=== PATIENT | female | born 1925 | race Caucasian/White ===

== ENCOUNTER 2016-06-07 18:44 | Emergency (ER) | payer OTHER, MEDICARE ==
[~2016-06-07 18:44] MED LIST: ALPRAZOLAM0.5 M3 PO; AMLODIPINE BES2.5 M1 PO; ANTIVERT25 MG PO; ASPIR 8181 MG PO; ENSURE 237 ML237 ML PO; LOSARTAN POTAS100 MG PO; MASON NATURAL2000 IU PO; MULTIVITAMIN1 TAB PO; NORVASC 5MG TAB5 MG PO; OMEPRAZOLE20 M2 PO; OMEPRAZOLE40 MG PO
--- NOTE | 2016-06-07 20:28 | RADIOLOGY REPORT ---
EXAMINATION: XR CHEST CLINICAL INFORMATION: Cough, fever, wheezing. COMPARISON: Chest x-ray 10/20/2015 TECHNIQUE: 2 views of the chest were obtained. FINDINGS: Lungs are clear. No pulmonary vascular congestion. No infiltrate or pleural effusion. The heart size is normal. The cardiac and mediastinal contours are normal. There are calcifications of the thoracic aorta. There are multilevel degenerative changes of dorsal spine. IMPRESSION: Unremarkable examination.
[2016-06-07 20:44] LABS: ABSOLUTE BASOPHIL COUNT 0 /CUMM (0.0-0.2); ABSOLUTE EOSINOPHIL COUNT 0.1 /CUMM (0.0-0.7); ABSOLUTE GRANULOCYTE CT 7.6 /CUMM (1.4-6.5); ABSOLUTE LYMPH COUNT 1.1 /CUMM (1.2-3.4); ABSOLUTE MONOCYTE COUNT 0.6 /CUMM (0.10-0.60); BASOPHIL % 0.1 % (0.0-2.0); EOSINOPHIL % 0.6 % (0-5); GRANULOCYTE % 81.4 % (42.2-75.2); HEMATOCRIT 38.4 % (37-47); MEAN CORPUSCULAR HGB 30.6 PG (27.0-31.0); MEAN CORPUSCULAR HGB CONC 32.7 G/DL (33.0-37.0); MEAN CORPUSCULAR VOLUME 93.8 FL (81.0-99.0); PLATELET COUNT 213 /CUMM (130-400); RBC DISTRIBUTION WIDTH 14.2 % (11.5-14.5); RED BLOOD CELL CT 4.09 /CUMM (4.20-5.40); WHITE BLOOD CELL COUNT 9.3 /CUMM (4.8-10.8)
[2016-06-07] MEDS ORDERED: ALPRAZOLAM0.5 M4 PO (21:14)
[2016-06-07] MEDS ORDERED: METRONIDAZOLE59 ML TOP (21:15)
[2016-06-07] MEDS ORDERED: ASPIRIN EC81 M1 PO (21:17)
[2016-06-07] MEDS ORDERED: LOSARTAN POTAS100 M1 PO (21:17)
[2016-06-07] MEDS ORDERED: ENSURE ENLIVE237 ML PO (21:19)
[2016-06-07] MEDS ORDERED: ENSURE ORIGINA237 ML PO (21:20)
[2016-06-07 22:08] VITALS: BP 170/74
[2016-06-07] MEDS ORDERED: MACROBID 100 M100 MG PO (22:28)
--- NOTE | 2016-06-07 22:29 | ED GENERAL ADULT ---
History of Present Illness General Chief Complaint: General Adult Stated Complaint: FEVER, HIGH BP Source: patient, family, old records Exam Limitations: no limitations Vital Signs & Intake/Output Vital Signs & Intake/Output Vital Signs Date Time Temp Pulse Resp B/P Pulse O2 O2 Flow FiO2 Ox Delivery Rate 06/08 2207 99.8 116 20 170/74 97 Room Air 06/07 1922 99.6 116 18 187/79 98 Room Air Allergies Coded Allergies: oxycodone (From PERCOCET) (Intermediate, FELT KIND OF CRAZY 09/21/15) sulfamethoxazole (From BACTRIM) (Intermediate, ACHILLES HEEL 09/21/15) trimethoprim (From BACTRIM) (Intermediate, ACHILLES HEEL 09/21/15) Beta-Blockers (Beta-Adrenergic Bloc ( TOLD PT DO NOT TAKE 09/21/15) lisinopril (COUGHING 09/21/15) valsartan (From DIOVAN) (SWELLING TO FEET 09/21/15) atenolol (Intermediate, ORTHOSTATIC HYPOTENSION 09/21/15) Reconcile Medications Alprazolam 0.5 MG TABLET 1 TAB PO BID ANXIETY (Reported) Amlodipine Besylate 2.5 MG TABLET 1-2 TAB PO DAILY BP (Reported) Aspirin (Ecotrin*) 81 MG TABLET.DR 1 TAB PO DAILY HEART/BLOOD (Reported) Lactose-Reduced Food (Ensure Enlive) 0.08 GRAM-1.5 KCAL/ML LIQUID 1 CAN PO PRN SUPPLEMENT (Reported) Lactose-Reduced Food (Ensure Original) 237 ML LIQUID 1 CAN PO PRN SUPPLEMENT (Reported) Losartan Potassium 100 MG TABLET 1 TAB PO QPM BP (Reported) Metronidazole 0.75 % LOTION 1 JI TOP QAM ROSACEA (Reported) Nitrofurantoin Monohyd/M-Cryst (Macrobid 100 MG Capsule) 100 MG CAPSULE 1 CAP PO BID uti with food Omeprazole 20 MG CAPSULE.DR 1 CAP PO PRN GI (Reported) Triage Note: TRIAGE; PT TO ED WITH HIGH BP AND FEVER. STATES BP WAS 190'S SYSTOLIC AND HAD A SMALL TEMPERATURE. ADVISED TO COME TO ER BY STAFF - PT LIVES IN [facility]. STATES SHE STOPPED TAKING HER AMLODIPINE SINCE HER BP HAS BEEN BETTER. WAS DX WITH BRONCHITIS THE OTHER DAY. DENIES ANY CP/SOB AT THIS TIME Triage Nurses Notes Reviewed? yes Onset: Last week Duration: day(s):, constant, continues in ED Timing: recent history Injury Environment: home Severity: moderate No Modifying Factors: none Associated Symptoms: cough LMP (ages 10-50): post menopausal : No Patient currently breastfeeds: No HPI: One week prior to admission patient was diagnosed with bronchitis prescribed prednisone and Tessalon. She's noted that her blood pressure has become elevated with low-grade temperature and dysuria. The cough is improved. She denies chills nausea vomiting diarrhea abdominal pain chest pain headache rash shortness of breath bleeding. Past History Travel History Traveled to [place] past 21 day No Medical History Any Pertinent Medical History? 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 No Review of Systems Review of Systems Constitutional: Reports: see HPI, fever. EENTM: Reports: no symptoms. Respiratory: Reports: see HPI, cough. Cardiovascular: Reports: no symptoms. GI: Reports: no symptoms. Genitourinary: Reports: see HPI, dysuria. Musculoskeletal: Reports: no symptoms. Skin: Reports: no symptoms. Neurological/Psychological: Reports: no symptoms. Hematologic/Endocrine: Reports: no symptoms. Immunologic/Allergic: Reports: no symptoms. All Other Systems: Reviewed and Negative Physical Exam Physical Exam General Appearance: well developed/nourished, alert, awake, anxious, mild distress Head: atraumatic, normal appearance Eyes: Bilateral: normal appearance, PERRL, EOMI. Ears, Nose, Throat: normal pharynx, normal ENT inspection Neck: normal inspection, supple, full range of motion, no midline tenderness Respiratory: chest non-tender, no respiratory distress, wheezing Cardiovascular: regular rate/rhythm, normal peripheral pulses, norml femoral pulses equa Peripheral Pulses: 4+ carotid (R), 4+ carotid (L) Gastrointestinal: normal bowel sounds, soft, non-tender, no organomegaly Back: normal inspection, normal range of motion Extremities: normal inspection, normal capillary refill, normal range of motion, no edema Neurologic/Psych: no motor/sensory deficits, awake, alert, oriented x 3, normal gait, normal mood/affect Reflexes: 2+: bicep (R), bicep (L). Skin: intact, normal color, warm/dry Lymphatic: no anterior cervical bonita Core Measures ACS in differential dx? No CVA/TIA Diagnosis: No Severe Sepsis Present: No Septic Shock Present: No Progress Differential Diagnoses I considered the following diagnoses in my evaluation of the patient: Influenza hypertension UTI bronchitis Plan of Care: Orders Procedure Date/time Status RAPID VIRAL INFLUENZA A 06/07 2000 Complete URINALYSIS 06/07 2000 Complete TROPONIN LEVEL 06/07 2000 Complete COMPREHENSIVE METABOLIC PANEL 06/07 2000 Complete CBC WITHOUT DIFFERENTIAL 06/07 2000 Complete EKG 06/07 2000 Active Laboratory Tests 06/07/16 2200: Urine Color YEL, Urine Clarity CLEAR, Urine pH 6.5, Ur Specific [place] 1.020, Urine Protein 30 H, Urine Ketones 15 H, Urine Nitrite NEG, Urine Bilirubin NEG , Urine Urobilinogen 0.2, Ur Leukocyte Esterase TRACE H, Ur Microscopic SEDIMENT EXAMINED, Urine RBC 1-3, Urine WBC 5-10 H, Ur Epithelial Cells MOD H, Urine Bacteria FEW H, Urine Hemoglobin NEG, Urine Glucose NEG 06/07/162036: Anion Gap 8, Estimated GFR > 60, BUN/Creatinine Ratio 18.3, Glucose 122 H, Calcium 9.5, Total Bilirubin 0.5, AST 24, ALT 28, Alkaline Phosphatase 82, Troponin I < 0.01, Total Protein 6.6, Albumin 3.7, Globulin 2.9, Albumin/ Globulin Ratio 1.3, CBC w Diff NO MAN DIFF REQ, RBC 4.09 L, MCV 93.8, MCH 30.6, RDW 14.2, MPV 9.0, Gran % 81.4 H, Lymphocytes % 11.6 L, Monocytes % 6.3, Eosinophils % 0.6, Basophils % 0.1, Absolute Granulocytes 7.6 H, Absolute Lymphocytes 1.1 L, Absolute Monocytes 0.6, Absolute Eosinophils 0.1, Absolute Basophils 0, PUBS MCHC 32.7 L Microbiology 06/07 2099 NASOPHARYN: Influenza Virus A & B Rapid Smear - COMP Diagnostic Imaging: Viewed by Me: Radiology Read. Discussed w/RAD: Radiology Read. CXR Impression: no acute abnormality, no infiltrates Initial ED EKG: normal axis, normal intervals, normal p-waves, normal QRS complex, normal sinus rhythm, no ST T wave changes Departure Departure Time of Disposition: 2225 Disposition: HOME OR SELF CARE Condition: Stable Clinical Impression Primary Impression: Hypertension Qualifiers: Hypertension type: essential hypertension Qualified Code: I10 - Essential (primary) hypertension Secondary Impressions: UTI (urinary tract infection) Qualifiers: Urinary tract infection type: site unspecified Hematuria presence: without hematuria Qualified Code: N39.0 - Urinary tract infection, site not specified Referrals: JOSE EMANUEL MD (PCP/Family) Additional Instructions: Resume your amlodipine. Departure Forms: Customer Survey General Discharge Information Prescriptions: Current Visit Scripts Nitrofurantoin Monohyd/M-Cryst (Macrobid 100 MG Capsule) 1 CAP PO BID #14 CAP with food Critical Care Note Critical Care Note Critical Care Time: non-applicable
== END 2016-06-07 22:52 ==
LOC: ERH 18:44
PROVIDERS: Emergency Medicine
DX: N39.0 Urinary tract infection, site not specified (principal); I10 Essential (primary) hypertension
CPT/HCPCS: 1263; 81001; 87804; 87804-59; 93005; 93010

== ENCOUNTER 2016-06-14 15:25 | Inpatient (IN) | payer OTHER, MEDICARE ==
[~2016-06-14] VITALS: Ht 154.9 cm; Wt 49.9 kg
[~2016-06-14 15:25] MED LIST changes: +ALPRAZOLAM0.5 M4 PO; +ASPIRIN EC81 M1 PO; +ENSURE ENLIVE237 ML PO; +ENSURE ORIGINA237 ML PO; +LOSARTAN POTAS100 M1 PO; +MACROBID 100 M100 MG PO; +METRONIDAZOLE59 ML TOP
[2016-06-14 16:33] LABS: ABSOLUTE BASOPHIL COUNT 0 /CUMM (0.0-0.2); ABSOLUTE EOSINOPHIL COUNT 0.1 /CUMM (0.0-0.7); ABSOLUTE GRANULOCYTE CT 17.6 /CUMM (1.4-6.5); ABSOLUTE LYMPH COUNT 0.5 /CUMM (1.2-3.4); ABSOLUTE MONOCYTE COUNT 0.5 /CUMM (0.10-0.60); BASOPHIL % 0.1 % (0.0-2.0); EOSINOPHIL % 0.4 % (0-5); MEAN CORPUSCULAR HGB 30.4 PG (27.0-31.0); MEAN CORPUSCULAR HGB CONC 32.8 G/DL (33.0-37.0); MEAN CORPUSCULAR VOLUME 92.8 FL (81.0-99.0); PLATELET COUNT 241 /CUMM (130-400); RBC DISTRIBUTION WIDTH 13.9 % (11.5-14.5)
[2016-06-14 16:35] LABS: WHITE BLOOD CELL COUNT 18.6 /CUMM (4.8-10.8)
[2016-06-14 16:42] LABS: GRANULOCYTE % 94.5 % (42.2-75.2)
--- NOTE | 2016-06-14 17:28 | ED INFLUENZA/URI COMPLAINT ---
History of Present Illness General Chief Complaint: General Adult Stated Complaint: FEVER; CHILLS Source: patient, family (son) Exam Limitations: no limitations Allergies Coded Allergies: oxycodone (From PERCOCET) (Intermediate, FELT KIND OF CRAZY 09/21/15) sulfamethoxazole (From BACTRIM) (Intermediate, ACHILLES HEEL 09/21/15) trimethoprim (From BACTRIM) (Intermediate, ACHILLES HEEL 09/21/15) Beta-Blockers (Beta-Adrenergic Bloc (MD TOLD PT DO NOT TAKE 09/21/15) lisinopril (COUGHING 09/21/15) valsartan (From DIOVAN) (SWELLING TO FEET 09/21/15) atenolol (Intermediate, ORTHOSTATIC HYPOTENSION 09/21/15) Reconcile Medications Alprazolam 0.5 MG TABLET 1 TAB PO BID ANXIETY (Reported) Amlodipine Besylate 2.5 MG TABLET 1-2 TAB PO DAILY BP (Reported) Aspirin (Ecotrin*) 81 MG TABLET.DR 1 TAB PO DAILY HEART/BLOOD (Reported) Lactose-Reduced Food (Ensure Enlive) 0.08 GRAM-1.5 KCAL/ML LIQUID 1 CAN PO PRN SUPPLEMENT (Reported) Lactose-Reduced Food (Ensure Original) 237 ML LIQUID 1 CAN PO PRN SUPPLEMENT (Reported) Losartan Potassium 100 MG TABLET 1 TAB PO QPM BP (Reported) Metronidazole 0.75 % LOTION 1 JI TOP QAM ROSACEA (Reported) Nitrofurantoin Monohyd/M-Cryst (Macrobid 100 MG Capsule) 100 MG CAPSULE 1 CAP PO BID uti with food Omeprazole 20 MG CAPSULE.DR 1 CAP PO PRN GI (Reported) Tobramycin 0.3 % DROPS 1 GTT OPH 4 TIMES/DAY BOTH EYES (Reported) Triage Note: PER PT CHILLS AND FEVERS NURSE CAME TO [facility] THIS AM PER PT TEMP 103. PT WITH RECENT HX OF COLD, BRONCHITIS AND PINK EYE. RECENT {>1 MONTH AGO HX OF NORO VIRUS. PT REPORTS DECREASED APPETITE WELL. Triage Nurses Notes Reviewed? yes HPI: This patient is an 89 year old female with a past medical history including hypertension, orthostatic hypotension, bronchitis, and anxiety who was brought in from [facility] for evaluation of fever. The patient reported that over a month ago she was diagnosed with Norovirus. Two weeks ago she had bronchitis and was also diagnosed with a UTI, currently on Macrobid. She reported that she did not take her dose today because she was worried it gave her a fever. She was diagnosed with conjunctivitis last week, currently on antibiotic eye drops. She reported that she felt fine yesterday until last night when she felt chilled. She had a fever to 103 and a mild right lower abdominal pain. She reported that the pain was, "just nagging, only enough to keep me up at night." She denied any pain currently. No nausea or vomiting. She denied any headaches, chest pain, difficulty breathing, or any urinary symptoms. (MICHAEL BOUCHER PA-C) Vital Signs & Intake/Output Vital Signs & Intake/Output Vital Signs Date Time Temp Pulse Resp B/P Pulse O2 O2 Flow FiO2 Ox Delivery Rate 06/14 2255 96.5 82 20 113/63 94 Room Air 06/14 2101 97.2 83 20 109/64 93 Room Air 06/14 1845 97.0 84 20 135/60 98 Room Air 06/14 1758 97.0 89 20 138/64 100 Room Air 06/14 1534 98.3 102 22 110/65 95 Room Air Past History Travel History Traveled to [place] past 21 day No Medical History Any Pertinent Medical History? 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 No (MICHAEL BOUCHER PA-C) Review of Systems Review of Systems Constitutional: Reports: see HPI. EENTM: Reports: see HPI. Respiratory: Reports: no symptoms. Cardiovascular: Reports: no symptoms. GI: Reports: see HPI. Genitourinary: Reports: see HPI. Musculoskeletal: Reports: no symptoms. Skin: Reports: no symptoms. Neurological/Psychological: Reports: no symptoms. All Other Systems: Reviewed and Negative (MICHAEL BOUCHER PA-C) Physical Exam Physical Exam Ears, Nose, Throat: normal ENT inspection, moist mucous membrane, hearing grossly normal, no nasal congestion Comments: Well-developed well-nourished person in no acute distress HEENT: Normal EENT exam, head normocephalic PERRLA bilaterally. No conjunctival injection. No drainage from the eyes bilaterally Neck: Supple, no lymphadenopathy Back: Normal inspection Cardiovascular: Regular rate and rhythm with no murmurs, rubs, or gallops Respiratory: Chest nontender. No respiratory distress. Scattered rhonchi heard in the lung bases with no wheezes or rales Abdomen: Soft, nontender and nondistended. No rebound or guarding. No organomegaly. Normoactive bowel sounds. No peritoneal signs. No McBurney's point tenderness. Extremity: Normal and equal pulses. Neuro: Alert oriented x3, cranial nerves II through XII grossly intact. Skin: No appreciable rash on exposed skin, skin is warm and dry. Psych: Mood and affect is normal Core Measures Severe Sepsis Present: No Septic Shock Present: No (CITLALY LOTT,MICHAEL) Progress Differential Diagnosis: influenza, meningitis, otitis, pneumonia, pharyngitis, sinusitis, gastroenteritis, appendicitis, mesenteric ischemia, colitis Diagnostic Imaging: Viewed by Me: Radiology Read, CT Scan. Discussed w/RAD: Radiology Read, CT Scan. Radiology Impression: PATIENT: DIANE SANCHEZ PRESENT AGE: 89 PATIENT ACCOUNT NO: [id number] : [birth year] LOCATION: [facility] ORDERING PHYSICIAN: MICHAEL BOUCHER PA-C SERVICE DATE: 06/14/16 EXAM TYPE: CAT - CT ABD & PELVIS W IV CONTRAST EXAMINATION: CT ABDOMEN AND PELVIS WITH CONTRAST CLINICAL INFORMATION: Abdominal pain. Fever. COMPARISON: CT abdomen pelvis 08/07 TECHNIQUE: Multidetector volumetric imaging was performed of the abdomen and pelvis before and after the IV administration of 95 mL of Optiray 320 intravenous contrast. Sagittal and coronal reformatted images were obtained on the technologist's workstation. DLP: 236.84 mGy-cm FINDINGS: LUNG BASES: Coarse interstitial lung markings at lung bases. No infiltrate or pleural effusion. LIVER, GALLBLADDER, AND BILIARY TREE: The liver is normal in size, shape, and attenuation. No focal hepatic lesion or biliary ductal dilatation is present. Status post cholecystectomy PANCREAS: Unremarkable. SPLEEN: Unremarkable. ADRENAL GLANDS: Unremarkable. KIDNEYS AND URETERS: There are bilateral renal cysts. Largest involves the midpole the right kidney measuring 7.5 cm. No renal or ureteral calculi. There is no hydronephrosis. BLADDER: Unremarkable. GASTROINTESTINAL TRACT: There is diverticulosis of the colon with numerous diverticula of the sigmoid and scattered diverticula throughout the colon. No diverticulitis. No acute change of the bowel. No bowel obstruction. No bowel wall thickening or edema. The appendix is normal. The small bowel loops are normal. ABDOMINAL WALL: No significant hernia is appreciated. LYMPH NODES: Normal. VASCULAR: Atherosclerotic vascular wall calcifications of aorta and iliac vessels. Vascular calcification of the splenic artery and the origin of the SMA and celiac axis. No aneurysm. Normal variant of a retroaortic left renal vein. PELVIC VISCERA: Uterus is anteverted. No adnexal abnormality. OSSEOUS STRUCTURES: There is mild multilevel degenerative change of the spine with disc height narrowing and endplate spurs and mild facet joint arthrosis. Vacuum disc phenomena L3-L4. IMPRESSION: No acute abnormality CT scan abdomen and pelvis. There is diverticulosis of the colon but no acute changes of the bowel. DICTATED BY: MONICA OROZCO MD DATE/TIME DICTATED:06/14/161955 GAMBRELER HELPER:ARTEM DATE/TIME TRANSCRIBED:06/14/161955 CONFIDENTIAL, DO NOT COPY WITHOUT APPROPRIATE AUTHORIZATION. <Electronically signed in Other Vendor System> SIGNED BY: MONICA OROZCO MD 06/14/162005 CXR Impression: PATIENT: DIANE SANCHEZ PRESENT AGE: 89 PATIENT ACCOUNT NO: [id number] : [birth year] LOCATION: [facility] ORDERING PHYSICIAN: MICHAEL BOUCHER PA-C SERVICE DATE: 06/14/16 EXAM TYPE: RAD - XRY- PORTABLE CHEST XRAY EXAMINATION: XR PORTABLE CHEST CLINICAL INFORMATION: Fevers and chills. COMPARISON: 06/07/2016. TECHNIQUE: Portable AP view of the chest was obtained. FINDINGS: The cardiomediastinal silhouette is normal for technique. The lungs remain clear. No consolidation. There is equivocal mild blunting of the left costophrenic angle. No pneumothoraces. No acute osseous abnormalities are evident. IMPRESSION: Equivocal mild blunting of the left costophrenic angle raising the possibility of a small left pleural effusion. No consolidation or evidence of pulmonary edema. DICTATED BY: XAVI HATCH MD DATE/TIME DICTATED:1732 GAMBRELER HELPER:ARTEM DATE/TIME TRANSCRIBED:03/16/17 / 1733 CONFIDENTIAL, DO NOT COPY WITHOUT APPROPRIATE AUTHORIZATION. <Electronically signed in Other Vendor System> SIGNED BY: XAVI HATCH MD 06/14/16 1738 Initial ED EKG: normal axis, normal intervals, normal sinus rhythm, no ST T wave changes, 88 BPM Comments: 06/14/2016 6:33:11 PM: I was at the patient's bedside for re-evaluation. Resting comfortably in no acute distress. WBC count 18. Will obtain a CT of the abdomen and pelvis (CITLALY LOTT,MICHAEL) Plan of Care: Orders Procedure Date/time Status Regular Diet 06/15 B Active CBC WITHOUT DIFFERENTIAL 06/15 06 Active BASIC ELECTROLYTES PLUS BUN&CR 06/15 06 Active Saline Lock 06/14 2304 Active Pathway - chart 06/14 2304 Active House Staff 06/14 2304 Active Patient Data 06/14 2140 Active OXYGEN SETUP (GEN) 06/14 2134 Active Saline Lock 06/14 2134 Active Admit to inpatient 06/14 2134 Active Vital Signs 06/14 2134 Active Activity/Ambulation 06/14 2134 Active Code Status 06/14 2134 Active LACTIC ACID 06/14 2009 Complete Intake & Output 06/14 1845 Active RAPID VIRAL INFLUENZA A 06/14 1710 Complete CULTURE,URINE 06/14 1710 Active BLOOD CULTURE 06/14 1710 Active LACTIC ACID 06/14 1710 Complete EKG 06/14 1710 Active URINALYSIS 06/14 1614 Complete TROPONIN LEVEL 06/14 1614 Complete LIPASE 06/14 1614 Complete COMPREHENSIVE METABOLIC PANEL 06/14 1614 Complete CBC WITHOUT DIFFERENTIAL 06/14 1614 Complete AMYLASE 06/14 1614 Complete Current Medications Sig/Bobby Start time Last Medication Dose Stop Time Status Admin Losartan Potassium 100 MG QPM 06/15 2200 UNVr (Cozaar) Alprazolam 0.5 MG BID 06/15 1000 UNVr (Xanax) 06/22 0959 Amlodipine Besylate See Dose DAILY 06/15 1000 UNVr (Norvasc) Insts (1) Aspirin Buffered 81 MG DAILY 06/15 1000 UNVr (Ecotrin) Enoxaparin Sodium 40 MG DAILY 06/15 1000 UNVr (Lovenox) Acetaminophen 650 MG Q6P PRN 06/14 2315 UNVr (Tylenol) Tobramycin 1 GTT 4 TIMES/DAY 06/14 2301 UNVr (Tobrex) Dose Instructions: (1)Amlodipine Besylate (Norvasc): 1-2 TAB Laboratory Tests 06/14/168: Lactic Acid 1.0 06/14/162028: Urine Color YEL, Urine Clarity HAZY H, Urine pH 6.5, Ur Specific [place] <= 1.005, Urine Protein TRACE H, Urine Ketones 15 H, Urine Nitrite NEG, Urine Bilirubin NEG, Urine Urobilinogen 0.2, Ur Leukocyte Esterase SMALL H, Ur Microscopic SEDIMENT EXAMINED, Urine RBC 3-5, Urine WBC 10-15 H, Ur Epithelial Cells MANY H, Hyaline Casts RARE H, Granular Casts RARE H, Micro UA Comment CELLULAR CASTS H, Urine Hemoglobin TRACE-INTACT, Urine Glucose NEG 06/14/16 1740: Lactic Acid 1.5 06/14/16 1625: Anion Gap 13, Estimated GFR > 60, BUN/Creatinine Ratio 22.5, Glucose 138 H, Calcium 9.6, Total Bilirubin 1.3, AST 22, ALT 26, Alkaline Phosphatase 72, Troponin I < 0.01, Total Protein 7.0, Albumin 3.9, Globulin 3.1, Albumin/ Globulin Ratio 1.3, Amylase 62, Lipase 46, CBC w Diff NO MAN DIFF REQ, RBC 4.20, MCV 92.8, MCH 30.4, RDW 13.9, MPV 9.0, Gran % 94.5 H, Lymphocytes % 2.5 L, Monocytes % 2.5, Eosinophils % 0.4, Basophils % 0.1, Absolute Granulocytes 17.6 H, Absolute Lymphocytes 0.5 L, Absolute Monocytes 0.5, Absolute Eosinophils 0.1 , Absolute Basophils 0, PUBS MCHC 32.8 L Microbiology 06/14 2028 URINE ROUT: Urine Culture - RECD 06/14 1843 NASOPHARYN: Influenza Virus A & B Rapid Smear - COMP 06/14 175 BLOOD: Blood Culture - RECD 06/15 1739 BLOOD: Blood Culture - RECD Departure Departure Disposition: STILL A PATIENT Condition: Stable Clinical Impression Primary Impression: UTI (urinary tract infection) Qualifiers: Urinary tract infection type: site unspecified Hematuria presence: without hematuria Qualified Code: N39.0 - Urinary tract infection, site not specified Secondary Impressions: Altered mental status Qualifiers: Altered mental status type: unspecified Qualified Code: R41.82 - Altered mental status, unspecified Referrals: JOSE EMANUEL MD (PCP/Family) Departure Forms: Customer Survey General Discharge Information Admission Note Spoke With: DAMARIS WERNER MD Documentation of Exam: Documentation of any treatments & extenuating circumstances including Concerns Regarding Discharge (functional status, medication knowledge or non-compliance, living conditions, etc.) that warrant an admission rather than observation: [ This patient is an 89-year-old female who presented to the emergency department today for evaluation of fevers and chills. White blood cell count of 18.5. Altered per this patient's brother. UTI based on urinalysis. This patient should be brought in to general medicine for failed outpatient antibiotic therapy for urinary tract infection, located by altered mental status. She will need IV antibiotics, follow blood cultures, follow-up urine culture, trend labs, IV fluids, and close monitoring. This patient is a poor candidate for outpatient treatment.] (CITLALY LOTT,MICHAEL) PA/WINDSHIELD WIPER REPAIRER Co-Sign Statement Statement: ED Attending supervision documentation- x I saw and evaluated the patient. I have also reviewed all the pertinent lab results and diagnostic results. I agree with the findings and the plan of care as documented in the PA's/WINDSHIELD WIPER REPAIRER's documentation. [] I have reviewed the ED Record and agree with the PA's/WINDSHIELD WIPER REPAIRER's documentation. [] Additions or exceptions (if any) to the PAs/WINDSHIELD WIPER REPAIRER's note and plan are summarized below: [] (CHERYL GOMEZ,AMY)
--- NOTE | 2016-06-14 17:38 | RADIOLOGY REPORT ---
EXAMINATION: XR PORTABLE CHEST CLINICAL INFORMATION: Fevers and chills. COMPARISON: 06/07/2016. TECHNIQUE: Portable AP view of the chest was obtained. FINDINGS: The cardiomediastinal silhouette is normal for technique. The lungs remain clear. No consolidation. There is equivocal mild blunting of the left costophrenic angle. No pneumothoraces. No acute osseous abnormalities are evident. IMPRESSION: Equivocal mild blunting of the left costophrenic angle raising the possibility of a small left pleural effusion. No consolidation or evidence of pulmonary edema.
[2016-06-14] MEDS ORDERED: TOBRAMYCIN5 ML OPH (18:29)
--- NOTE | 2016-06-14 20:06 | CT SCAN REPORT ---
EXAMINATION: CT ABDOMEN AND PELVIS WITH CONTRAST CLINICAL INFORMATION: Abdominal pain. Fever. COMPARISON: CT abdomen pelvis 08/07/2013 TECHNIQUE: Multidetector volumetric imaging was performed of the abdomen and pelvis before and after the IV administration of 95 mL of Optiray 320 intravenous contrast. Sagittal and coronal reformatted images were obtained on the technologist's workstation. DLP: 236.84 mGy-cm FINDINGS: LUNG BASES: Coarse interstitial lung markings at lung bases. No infiltrate or pleural effusion. LIVER, GALLBLADDER, AND BILIARY TREE: The liver is normal in size, shape, and attenuation. No focal hepatic lesion or biliary ductal dilatation is present. Status post cholecystectomy PANCREAS: Unremarkable. SPLEEN: Unremarkable. ADRENAL GLANDS: Unremarkable. KIDNEYS AND URETERS: There are bilateral renal cysts. Largest involves the midpole the right kidney measuring 7.5 cm. No renal or ureteral calculi. There is no hydronephrosis. BLADDER: Unremarkable. GASTROINTESTINAL TRACT: There is diverticulosis of the colon with numerous diverticula of the sigmoid and scattered diverticula throughout the colon. No diverticulitis. No acute change of the bowel. No bowel obstruction. No bowel wall thickening or edema. The appendix is normal. The small bowel loops are normal. ABDOMINAL WALL: No significant hernia is appreciated. LYMPH NODES: Normal. VASCULAR: Atherosclerotic vascular wall calcifications of aorta and iliac vessels. Vascular calcification of the splenic artery and the origin of the SMA and celiac axis. No aneurysm. Normal variant of a retroaortic left renal vein. PELVIC VISCERA: Uterus is anteverted. No adnexal abnormality. OSSEOUS STRUCTURES: There is mild multilevel degenerative change of the spine with disc height narrowing and endplate spurs and mild facet joint arthrosis. Vacuum disc phenomena L3-L4. IMPRESSION: No acute abnormality CT scan abdomen and pelvis. There is diverticulosis of the colon but no acute changes of the bowel.
--- NOTE | 2016-06-14 23:00 | History & Physical ---
[facility] 06[facility]14/16 2300: General Information and HPI MD Statement: I have seen and personally examined LAURADIANE Francis and documented this H&P. The patient is a 89 year old F who presented with a patient stated chief complaint of [fever]. Source of Information: patient, family, old records Exam Limitations: unable to give history, dementia, poor historian History of Present Illness: This is a 89-year-old female past medical history significant for meningioma, hyperlipidemia, cystic kidney, goiter, hypertension, orthostatic hypotension, bronchitis, anxiety, who is a resident of [facility] who comes in for chief complaint of fever. Patient was sent in by residential staff as she had a fever of 103 last night, right-sided lower abdominal pain, chills, and some confusion. Patient is a poor historian was able to corroborate some of these details. She dates state that she had a "nagging pain" in her lower abdomen, which denies any nausea, vomiting, headache, chest pain, short of breath, any change in her urinary habits including itching, burning, frequency. She did endorse decrease in appetite. Patient stated about 3 or 4 days ago she went 24 hours without urination. Unsure of the validity of this information, son at bedside was not able to confirm. Patient has medical history significant for diagnosis of normal virus one month ago, and diagnosis of UTI and bronchitis 2 weeks ago for which she was started on Macrobid. And conjunctivitis one week ago. Patient states she didn't take the Macrobid today otherwise, she has been taking the medication as prescribed. Allergies/Medications Allergies: Coded Allergies: oxycodone (From PERCOCET) (Intermediate, FELT KIND OF CRAZY 09/21/15) sulfamethoxazole (From BACTRIM) (Intermediate, ACHILLES HEEL 09/21/15) trimethoprim (From BACTRIM) (Intermediate, ACHILLES HEEL 09/21/15) Beta-Blockers (Beta-Adrenergic Bloc ( TOLD PT DO NOT TAKE 09/21/15) lisinopril (COUGHING 09/21/15) valsartan (From DIOVAN) (SWELLING TO FEET 09/21/15) atenolol (Intermediate, ORTHOSTATIC HYPOTENSION 09/21/15) Home Med list Alprazolam 0.5 MG TABLET 1 TAB PO BID ANXIETY (Reported) Amlodipine Besylate 2.5 MG TABLET 1-2 TAB PO DAILY BP (Reported) Aspirin (Ecotrin*) 81 MG TABLET.DR 1 TAB PO DAILY HEART/BLOOD (Reported) Lactose-Reduced Food (Ensure Enlive) 0.08 GRAM-1.5 KCAL/ML LIQUID 1 CAN PO PRN SUPPLEMENT (Reported) Lactose-Reduced Food (Ensure Original) 237 ML LIQUID 1 CAN PO PRN SUPPLEMENT (Reported) Losartan Potassium 100 MG TABLET 1 TAB PO QPM BP (Reported) Metronidazole 0.75 % LOTION 1 JI TOP QAM ROSACEA (Reported) Nitrofurantoin Monohyd/M-Cryst (Macrobid 100 MG Capsule) 100 MG CAPSULE 1 CAP PO BID uti with food Omeprazole 20 MG CAPSULE.DR 1 CAP PO PRN GI (Reported) Tobramycin 0.3 % DROPS 1 GTT OPH 4 TIMES/DAY BOTH EYES (Reported) Compliance With Home Meds: GOOD Past History Travel History Traveled to [place] past 21 day No Medical History Neurological: vertigo EENT: NONE Cardiovascular: hypertension, hyperlipidemia, orthostatic hypotension Respiratory: NONE Gastrointestinal: NONE Hepatic: NONE Renal: CONGENITAL CYSTIC KIDNEY Musculoskeletal: osteoporosis Psychiatric: anxiety Endocrine: GOITER HYPERCALCEMIA Blood Disorders: NONE Cancer(s): CEREBRAL MENINGIOMA 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 Ambulation: cane IADLs Needs Assist: shopping, housework, finances, food prep, telephone, transportation, medication admin. Review of Systems Review of Systems Constitutional: Reports: no symptoms. Exam & Diagnostic Data Last 24 Hrs of Vital Signs/I&O Vital Signs Date Time Temp Pulse Resp B/P Pulse O2 O2 Flow FiO2 Ox Delivery Rate 06/15 0111 97.8 75 18 122/60 93 Room Air 06/15 0027 93 Room Air 06/15 0025 97.0 75 18 102/57 93 Room Air 06/14 2255 96.5 82 20 113/63 94 Room Air 06/14 2101 97.2 83 20 109/64 93 Room Air 06/14 1845 97.0 84 20 135/60 98 Room Air 06/14 1758 97.0 89 20 138/64 100 Room Air 06/14 1534 98.3 102 22 110/65 95 Room Air Intake & Output 06/15 0800 06/15 0000 06/14 1600 Intake Total 1000 Output Total Balance 1000 Intake, IV 1000 Patient 49.895 kg Weight Physical Exam General Appearance Cooperative, No Acute Distress Skin No Rashes HEENT Atraumatic, PERRLA, Both eyes nonerythematous Neck Supple Cardiovascular Regular Rate, Normal S1, Normal S2 Lungs Clear to Auscultation Abdomen Soft, No Tenderness Extremities No Clubbing, No Cyanosis, No Edema Last 24 Hrs of Labs/Afshin: Laboratory Tests 06/14/162107: Lactic Acid 1.0 06/14/162028: Urine Color YEL, Urine Clarity HAZY H, Urine pH 6.5, Ur Specific Gerlach <= 1.005, Urine Protein TRACE H, Urine Ketones 15 H, Urine Nitrite NEG, Urine Bilirubin NEG, Urine Urobilinogen 0.2, Ur Leukocyte Esterase SMALL H, Ur Microscopic SEDIMENT EXAMINED, Urine RBC 3-5, Urine WBC 10-15 H, Ur Epithelial Cells MANY H, Hyaline Casts RARE H, Granular Casts RARE H, Micro UA Comment CELLULAR CASTS H, Urine Hemoglobin TRACE-INTACT, Urine Glucose NEG 06/14/16 1740: Lactic Acid 1.5 06/14/16 1625: Anion Gap 13, Estimated GFR > 60, BUN/Creatinine Ratio 22.5, Glucose 138 H, Calcium 9.6, Total Bilirubin 1.3, AST 22, ALT 26, Alkaline Phosphatase 72, Troponin I < 0.01, Total Protein 7.0, Albumin 3.9, Globulin 3.1, Albumin/ Globulin Ratio 1.3, Amylase 62, Lipase 46, CBC w Diff NO MAN DIFF REQ, RBC 4.20, MCV 92.8, MCH 30.4, RDW 13.9, MPV 9.0, Gran % 94.5 H, Lymphocytes % 2.5 L, Monocytes % 2.5, Eosinophils % 0.4, Basophils % 0.1, Absolute Granulocytes 17.6 H, Absolute Lymphocytes 0.5 L, Absolute Monocytes 0.5, Absolute Eosinophils 0.1 , Absolute Basophils 0, PUBS MCHC 32.8 L Microbiology 06/14 2028 URINE ROUT: Urine Culture - RECD 06/14 184 NASOPHARYN: Influenza Virus A & B Rapid Smear - COMP 06/14 1753 BLOOD: Blood Culture - RECD 06/14 1740 BLOOD: Blood Culture - RECD Assessment/Plan Assessment: This is an 89-year-old female with past medical history of recurrent UTI, hypertension, orthostatic hypotension, anxiety, cystic kidney, goiter, meningioma, hyperlipidemia, who comes in with chief complaint of fever. Patient has vague symptoms of fever, chills, right lower abdominal pain and a positive UA. She was treated for UTI with Macrobid and has been taking medication consistently. ED workup showed: Vitals: 97.2, 83, 20, 109/64, 93. Negative lactic acid UA: Positive ketones, trace protein, small leukocyte esterase, positive red blood cell. CBC showed white count 18.6, hemoglobin 12.8, hematocrit 39, platelet 241. BEP within normal limits. Negative amylase and lipase. Abdominal CT: largely negative except for evidence of diverticulosis. Chest x-ray showing questionable pleural effusion. PLAN 1. UTI: 30 UA, fever, leukocytosis up to 18.6, confusion, lower abdominal pain, and decreased appetite. CT shows no evidence of intra-abdominal pathology. * Ceftriaxone 1 g every 24 * Blood culture * Urine culture * UA * Consider outpatient urology evaluation 2. Conjunctivitis: Chronic and stable * Continue tobramycin eyedrops 3. Hypertension, hyperlipidemia, anxiety: Chronic and stable * Continue home regimen Full code Regular diet Chemical DVT prophylaxis As Ranked By This Provider Problem List: 1. Altered mental status Qualifiers Altered mental status type: unspecified Qualified Code: R41.82 - Altered mental status, unspecified 2. UTI (urinary tract infection) Qualifiers Urinary tract infection type: site unspecified Hematuria presence: without hematuria Qualified Code: N39.0 - Urinary tract infection, site not specified Core Measures/Miscellaneous Acute Coronary Syndrome ACS Diagnosis: No Cerebrovascular Accident CVA/TIA Diagnosis: No Congestive Heart Failure CHF Diagnosis: No Venous Thromboembolism VTE Risk Factors: Acute medical illness, Age > 40 [facility] prophylaxis d/t: No contraindications No VTE Pharm Prophylaxis d/t: No contraindications VTE Diagnosis: No VTE Type: NONE VTE Confirmed by (Test): NONE Severe Sepsis Severe Sepsis Present: No Septic Shock Septic Shock Present: No Miscellaneous Documentation Attending Case Discussed With: DAMARIS WERNER MD Primary Care Physician: JOSE EMANUEL MD Patient sees these Specialists unknown Level of Patient Care: General Medicine DEMETRIO GOMEZ,KELLIE 06/14/16 0041: Resident Review Statement Resident Statement: examined this patient, discussed with international bank manager, agreed with international bank manager, discussed with family, reviewed EMR data (avail), discussed with nursing , discussed with case mgmt, reviewed images, amended to note Other Findings: Andrea is an 82-year-old woman with hypertension disability vertigo congenital kidney disease, cerebral meningioma who lives at [facility]. She comes in presenting with disorientation chills fevers, right lower quadrant abdominal discomfort. Recently treated for conjunctivitis with tobramycin eyedrops. She was diagnosed with UTI 2 weeks he and receiving MicroBid therapy. Per son she was more lethargic and confused today with a fever of 103F at the facility she lives at. Physical examination as above. Labs are notable for an elevated white count of 18,000, and a positive UA suggestive of ongoing urinary tract infection. - Problems - Recurrent urinary tract infection failing outpatient antibiotics Conjunctivitis Hypertension - Plan - Ceftriaxone 1 g every 24 hours Await blood and urine cultures Consider outpatient urology evaluation with regard to anatomical abnormalities given recurrence of UTI Continue tobramycin for conjunctivitis DVT prophylaxis with Lovenox Full code DAMARIS WERNER 06/15/16 0632: Attending MD Review Statement Attending Statement Attending MD Statement: examined this patient, discuss w/resident/PA/EMISSIONS ENGINEER, agreed w/resident/PA/EMISSIONS ENGINEER, reviewed EMR data (avail), reviewed images, amended to note Attending Assessment/Plan: CC : Fever, confusion PMH: Essential hypertension, Orthostatic hypotension, diastolic dysfunction, HLD , anxiety, sciatica, 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 In last 1 month patient had diarrhea related to normal vitals, bronchitis, pink eye. Patient was seen in ER on June 07 for fever and high BP, no documented fever at that time, UA was positive for leukocyte esterase and patient was discharged on MicroBid, currently under treatment. According to patient's son , he was informed that patient had fever and should be evaluated in ER. Patient complains of a vague transient right lower quadrant abdominal pain, does not provide any details of urinary symptoms like burning, frequency, irritation but states that "you feel it when it is urine infection". Denies chest pain, cough, shortness of breath. Complains of some left ear fullness and tinnitus. Vitals: Afebrile, mildly tachycardic at presentation but improved eventually, RR , blood pressure, O2 saturation within acceptable range. On examination a O 3, no acute distress, mucosa dry, no JVD, no lymphadenopathy, neck supple, no mucosal congestion, CVS: S1-S2, RRR. RS: Clear to auscultate bilaterally. Abdomen: Soft, NT, ND, no rebound, no guarding, bowel sounds present. No focal neurological deficit, no dependent edema. No obvious skin rashes or inflammation. Labs: WBC 18.6, neutrophils 94%, lactate 1.5 otherwise EBC BMP and LFT unremarkable. CXR: Decreased vocal mild blunting of left costophrenic angle raising the possibility of small left pleural effusion. No evidence of consolidation. CT abdomen and pelvis with IV contrast: No acute abnormality CT scan abdomen and pelvis. There is diverticulosis of the colon but no acute changes of the bowel. A and P #1 fever, leukocytosis and confusion. Patient currently under treatment for UTI, ?Failed outpatient treatment. Urine cultures were not sent at that time, currently UA showing leukocyte is trace but sample quality not could. No documented fever. less likely UTI, but would treat this considering failed or undertreated infection and no other source of infection. Urine culture,, blood culture,, continue ceftriaxone IV, gentle hydration for 1 L 75 mL per hour. History of diverticulosis but no evidence of diverticulitis on CT, no guarding or rigidity on examination. No upper respiratory symptoms, cough is in fact getting better with the recent bronchitis. #2 continue rest of her home medications.
[2016-06-15 01:11] VITALS: BP 122/60
--- NOTE | 2016-06-15 06:32 | Admission Certification ---
Admission Certification Certification Statement - As attending physician, I certify that at the time of - admission, based on clinical presentation, severity of - symptoms, need for further diagnostic testing and - therapeutic interventions, and risk of adverse outcomes - without in-hospital treatment, in my clinical assessment, - this patient requires an acute hospital stay for a minimum - of two nights or longer. I have also considered psychsocial - factors such as support system, advanced age, financial - issues, cognitive issues, and failed out-patient treatments, - past re-admission history, safety of patient, and lack of - compliance as applicable. Specific rationale supporting this admission is: UTI, failed outpatient treatment.
[2016-06-15 06:40] VITALS: BP 120/66
--- NOTE | 2016-06-15 06:59 | PN- Housestaff ---
Subjective Follow-up For: UTI Subjective: No acute events overnight. Patient seen and examined this morning. She feels much better today. Her only complaint is chest pain exacerbated by coughing. She has had a persistent dry cough secondary to acute bronchitis for the past two weeks which has improved significantly. She denies shortness of breath. Review of Systems Constitutional: Reports: see HPI. Objective Last 24 Hrs of Vital Signs/I&O Vital Signs Date Time Temp Pulse Resp B/P Pulse O2 O2 Flow FiO2 Ox Delivery Rate 06/15 2117 122/60 06/15 1441 97.7 90 20 126/70 95 Room Air 06/15 1003 81 120/66 06/15 0800 Room Air 06/15 0640 97.6 81 20 120/66 97 Room Air 06/15 0227 75 122/60 06/15 0111 97.8 75 18 122/60 93 Room Air 06/15 0027 93 Room Air 06/15 0025 97.0 75 18 102/57 93 Room Air Intake & Output 06/15 1600 06/15 0800 06/15 0000 Intake Total 4626 876 8952 Output Total Balance 8393 295 2533 Intake, IV 880 085 3187 Intake, Oral 600 Number 0 Bowel Movements Patient 49.895 kg Weight Physical Exam General Appearance: Alert, Oriented X3, No Acute Distress HEENT: Atraumatic, Mucous Membr. moist/pink Neck: Supple Cardiovascular: Regular Rate, Normal S1, Normal S2 Lungs: Clear to Auscultation Abdomen: Soft, No Tenderness, Positive Bowel Sounds Extremities: No Clubbing, No Cyanosis, No Edema Current Medications: Current Medications Sig/Bobby Start time Last Medication Dose Route Stop Time Status Admin Acetaminophen 650 MG Q6P PRN 06/14 2314 AC PO Alprazolam 0.5 MG BID 06/15 1000 DC PO 06/22 0959 Alprazolam 0.5 MG BID 06/15 0130 AC 06/15 PO 06/22 0129 2117 Amlodipine Besylate 2.5 MG DAILY 06/15 1000 AC 06/15 PO 1003 Aspirin Buffered 81 MG DAILY 06/15 1000 AC 06/15 PO 1003 Ceftriaxone Sodium 1,000 MG DAILY 06/145 AC 06/15 IV 1003 Ceftriaxone Sodium 0 .STK-MED ONE 06/14 2314 DC .ROUTE Enoxaparin Sodium 40 MG DAILY 06/15 1000 AC 06/15 SC 1003 Losartan Potassium 100 MG QPM 06/15 2200 DC PO Losartan Potassium 100 MG QPM 06/15 0130 AC 06/15 PO 2117 Patient Medication 1 ED .STK-MED ONE 06/15 1407 DC Teaching ED 06/15 1408 Sodium Chloride 1,000 ML Q13H 06/15 0315 06/15 IV 1828 Tobramycin 1 GTT 4 TIMES/DAY 06/14 2302 AC 06/15 OPH 2117 Last 24 Hrs of Lab/Afshin Results Last 24 Hrs of Labs/Mics: Laboratory Tests 06/15/16 0742: Anion Gap 8, Estimated GFR > 60, BUN/Creatinine Ratio 26.7 H, CBC w Diff NO MAN DIFF REQ, RBC 3.62 L, MCV 93.6, MCH 30.7, RDW 14.2, MPV 9.8, Gran % 79.0 H, Lymphocytes % 10.3 L, Monocytes % 6.3, Eosinophils % 4.3, Basophils % 0.1, Absolute Granulocytes 9.2 H, Absolute Lymphocytes 1.2, Absolute Monocytes 0.7 H, Absolute Eosinophils 0.5, Absolute Basophils 0, PUBS MCHC 32.8 L UCx (06/14/16): NGTD BCx (06/14/16): NGTD x2 Assessment/Plan Assessment: 89 y/o F with PMHx of recurrent UTI, HTN and diastolic dysfunction who is admitted for UTI, after failing outpatient treatment with Macrobid. #UTI: On day 2 of ceftriaxone with significant clinical improvement. Remains afebrile and with improving leukocytosis. BCx and UCx NGTD, likely secondary to partial treatment with Macrobid. * Continue ceftriaxone 1 g IV daily. * Potential discharge to [facility] assisted living facility in two days. * Will discharge on Keflex 500 mg PO Q6H for a total of 14 days of antibiotics. * PT evaluation. #Chest pain: Exacerbated by coughing. Troponin on admission negative. EKG, rechecked today, without ST-T wave abnormalities. Most likely musculoskeletal. * NTD. Diet: Regular Fluids: NS @ 75 cc/hr DVT PPx: Lovenox and ALPs. CODE: FULL Problem List: 1. Chest pain 2. UTI (urinary tract infection) 3. Essential hypertension 4. Anxiety Pain Ratin Pain Location: N/A Pain Goal: Remain pain free Pain Plan: Tylenol 650 mg PO Q6H PRN Tomorrow's Labs & Rationales: CBC to monitor WBC in the setting of infection Discharge Plan Discharge Disposition: STR/NH Anticipated Discharge (Day): two days
[2016-06-15 08:47] LABS: ABSOLUTE BASOPHIL COUNT 0 /CUMM (0.0-0.2); ABSOLUTE EOSINOPHIL COUNT 0.5 /CUMM (0.0-0.7)
[2016-06-15 09:07] LABS: ABSOLUTE GRANULOCYTE CT 9.2 /CUMM (1.4-6.5); ABSOLUTE LYMPH COUNT 1.2 /CUMM (1.2-3.4); ABSOLUTE MONOCYTE COUNT 0.7 /CUMM (0.10-0.60); BASOPHIL % 0.1 % (0.0-2.0); EOSINOPHIL % 4.3 % (0-5); MEAN CORPUSCULAR HGB 30.7 PG (27.0-31.0); MEAN CORPUSCULAR HGB CONC 32.8 G/DL (33.0-37.0); MEAN CORPUSCULAR VOLUME 93.6 FL (81.0-99.0); MEAN PLATELET VOLUME 9.8 FL (7.4-10.4); PLATELET COUNT 201 /CUMM (130-400); RBC DISTRIBUTION WIDTH 14.2 % (11.5-14.5); RED BLOOD CELL CT 3.62 /CUMM (4.20-5.40); WHITE BLOOD CELL COUNT 11.6 /CUMM (4.8-10.8)
[2016-06-15 09:17] LABS: HEMATOCRIT 33.8 % (37-47)
--- NOTE | 2016-06-15 14:00 | PN- Att Addend ---
Attending Addendum Attending Brief Note Patient seen and examined, overall feeling much better. She denies any complaints except that she did have some left-sided chest pain with a cough. She denies any shortness of breath or any sputum production. Vital Signs Date Time Temp Pulse Resp B/P Pulse O2 O2 Flow FiO2 Ox Delivery Rate 06/15 1003 81 120/66 06/15 0800 Room Air 06/15 0640 97.6 81 20 120/66 97 Room Air 06/15 0227 75 122/60 06/15 0111 97.8 75 18 122/60 93 Room Air 06/15 0027 93 Room Air 06/15 0025 97.0 75 18 102/57 93 Room Air 06/14 2255 96.5 82 20 113/63 94 Room Air 06/14 2101 97.2 83 20 109/64 93 Room Air 06/14 1845 97.0 84 20 135/60 98 Room Air 06/14 1758 97.0 89 20 138/64 100 Room Air 06/14 1534 98.3 102 22 110/65 95 Room Air on exam; aox3, nad. cv; s1,s2, rrr resp; clear b/l abd; soft, nt, bs+ ext ; no edema Laboratory Tests 06/15 06/14 0742 2108 Chemistry Sodium (137 - 145 mmol/L) 134 L Potassium (3.5 - 5.1 mmol/L) 3.8 Chloride (98 - 107 mmol/L) 99 Carbon Dioxide (22 - 30 mmol/L) 27 Anion Gap (5 - 16) 8 BUN (7 - 17 mg/dL) 16 Creatinine (0.5 - 1.0 mg/dL) 0.6 Estimated GFR (>60 ml/min) > 60 BUN/Creatinine Ratio (7 - 25 %) 26.7 H Lactic Acid (0.7 - 2.1 mmol/L) 1.0 Hematology CBC w Diff NO MAN DIFF REQ WBC (4.8 - 10.8 /CUMM) 11.6 H RBC (4.20 - 5.40 /CUMM) 3.62 L Hgb (12.0 - 16.0 G/DL) 11.1 L Hct (37 - 47 %) 33.8 L MCV (81.0 - 99.0 FL) 93.6 MCH (27.0 - 31.0 PG) 30.7 RDW (11.5 - 14.5 %) 14.2 Plt Count (130 - 400 /CUMM) 201 MPV (7.4 - 10.4 FL) 9.8 Gran % (42.2 - 75.2 %) 79.0 H Lymphocytes % (20.5 - 51.1 %) 10.3 L Monocytes % (1.7 - 9.3 %) 6.3 Eosinophils % (0 - 5 %) 4.3 Basophils % (0.0 - 2.0 %) 0.1 Absolute Granulocytes (1.4 - 6.5 /CUMM) 9.2 H Absolute Lymphocytes (1.2 - 3.4 /CUMM) 1.2 Absolute Monocytes (0.10 - 0.60 /CUMM) 0.7 H Absolute Eosinophils (0.0 - 0.7 /CUMM) 0.5 Absolute Basophils (0.0 - 0.2 /CUMM) 0 PUBS MCHC (33.0 - 37.0 G/DL) 32.8 L 06/14 1740 Chemistry Lactic Acid (0.7 - 2.1 mmol/L) 1.5 Urines Urine Color (YEL,AMB,STR) YEL Urine Clarity (CLEAR) HAZY H Urine pH (5.0 - 8.0) 6.5 Ur Specific [place] (1.001 - 1.035) <= 1.005 Urine Protein (NEG,<30 MG/DL) TRACE H Urine Ketones (NEG) 15 H Urine Nitrite (NEG) NEG Urine Bilirubin (NEG) NEG Urine Urobilinogen (0.1 - 1.0 EU/dl) 0.2 Ur Leukocyte Esterase (NEG) SMALL H Ur Microscopic SEDIMENT EXAMINED Urine RBC (0 - 5 /HPF) 3-5 Urine WBC (0 - 2 /HPF) 10-15 H Ur Epithelial Cells (NONE,FEW) MANY H Hyaline Casts (0/LPF) RARE H Granular Casts (NONE /LPF) RARE H Micro UA Comment CELLULAR CASTS H Urine Hemoglobin (NEG) TRACE-INTACT Urine Glucose (N MG/DL) NEG 06/14 1625 Chemistry Sodium (137 - 145 mmol/L) 134 L Potassium (3.5 - 5.1 mmol/L) 4.2 Chloride (98 - 107 mmol/L) 94 L Carbon Dioxide (22 - 30 mmol/L) 26 Anion Gap (5 - 16) 13 BUN (7 - 17 mg/dL) 18 H Creatinine (0.5 - 1.0 mg/dL) 0.8 Estimated GFR (>60 ml/min) > 60 BUN/Creatinine Ratio (7 - 25 %) 22.5 Glucose (65 - 99 mg/dL) 138 H Calcium (8.4 - 10.2 mg/dL) 9.6 Total Bilirubin (0.2 - 1.3 mg/dL) 1.3 AST (14 - 36 U/L) 22 ALT (9 - 52 U/L) 26 Alkaline Phosphatase (<127 U/L) 72 Troponin I (< 0.11 ng/ml) < 0.01 Total Protein (6.3 - 8.2 g/dL) 7.0 Albumin (3.5 - 5.0 g/dL) 3.9 Globulin (1.9 - 4.2 gm/dL) 3.1 Albumin/Globulin Ratio (1.1 - 2.2 %) 1.3 Amylase (30 - 110 U/L) 62 Lipase (23 - 300 U/L) 46 Hematology CBC w Diff NO MAN DIFF REQ WBC (4.8 - 10.8 /CUMM) 18.6 H RBC (4.20 - 5.40 /CUMM) 4.20 Hgb (12.0 - 16.0 G/DL) 12.8 Hct (37 - 47 %) 39.0 MCV (81.0 - 99.0 FL) 92.8 MCH (27.0 - 31.0 PG) 30.4 RDW (11.5 - 14.5 %) 13.9 Plt Count (130 - 400 /CUMM) 241 MPV (7.4 - 10.4 FL) 9.0 Gran % (42.2 - 75.2 %) 94.5 H Lymphocytes % (20.5 - 51.1 %) 2.5 L Monocytes % (1.7 - 9.3 %) 2.5 Eosinophils % (0 - 5 %) 0.4 Basophils % (0.0 - 2.0 %) 0.1 Absolute Granulocytes (1.4 - 6.5 /CUMM) 17.6 H Absolute Lymphocytes (1.2 - 3.4 /CUMM) 0.5 L Absolute Monocytes (0.10 - 0.60 /CUMM) 0.5 Absolute Eosinophils (0.0 - 0.7 /CUMM) 0.1 Absolute Basophils (0.0 - 0.2 /CUMM) 0 PUBS MCHC (33.0 - 37.0 G/DL) 32.8 L A/P; 89 y/o F with pmh sig for meningioma, hyperlipidemia, cystic kidney, goiter , hypertension, orthostatic hypotension, bronchitis, anxiety admitted with fever , leukocytosis UTI and some confusion related to UTI likely. Currently improving on antibiotics. CT abdomen and pelvis was negative for any acute abnormality. Chest x-ray showed possibility of small left effusion. Patient did complain of some left-sided chest and upon coughing. Troponins were negative yesterday. We will check an EKG just to make sure. She did mention that she was recently treated for acute bronchitis. We will follow-up on the urine cultures and adjust abx accordingly. Continue all other current medications. DVT prophylaxis: Lovenox. Patient is from [facility] which she says is an independent living. We will obtain a PT evaluation.
[2016-06-15 14:41] VITALS: BP 126/70
--- NOTE | 2016-06-15 14:48 | Discharge Summary ---
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 Patient came from [facility] for fever and more confusion. In last 1 month patient had diarrhea related to normal vitals, bronchitis, pink eye. Patient was seen in ER on June 07 for fever and high BP, no documented fever at that time, UA was positive for leukocyte esterase and patient was discharged on MacroBid, currently under treatment. According to patient's son , he was informed that patient had fever and should be evaluated in ER. Patient complained of a vague transient right lower quadrant abdominal pain, did not provide any details of urinary symptoms like burning, frequency, irritation but stated that "you feel it when it is urine infection". Denied chest pain, cough, shortness of breath. Complained of some left ear fullness and tinnitus. Vitals: Afebrile, mildly tachycardic at presentation but improved eventually, RR , blood pressure, O2 saturation within acceptable range. On examination alert Oriented 3, no acute distress, mucosa dry, no JVD, no lymphadenopathy, neck supple, no mucosal congestion, CVS: S1-S2, RRR. RS: Clear to auscultate bilaterally. Abdomen: Soft, NT, ND, no rebound, no guarding, bowel sounds present. No focal neurological deficit, no dependent edema. No obvious skin rashes or inflammation. Labs: WBC 18.6, neutrophils 94%, lactate 1.5 otherwise EBC BMP and LFT unremarkable. CXR: Decreased vocal mild blunting of left costophrenic angle raising the possibility of small left pleural effusion. No evidence of consolidation. CT abdomen and pelvis with IV contrast: No acute abnormality CT scan abdomen and pelvis. There is diverticulosis of the colon but no acute changes of the bowel. Hospital course Patient was admitted on general medicine floor for urinary tract infection. She was started on IV ceftriaxone. Blood cultures 2 and urine culture were negative. We continued all her home medications. Later on her IV antibiotics were switched to by mouth antibiotics, keflex. Patient remained hemodynamically stable during her stay in hospital. Allergies: Coded Allergies: oxycodone (From PERCOCET) (Intermediate, FELT KIND OF CRAZY 09/21/15) sulfamethoxazole (From BACTRIM) (Intermediate, ACHILLES HEEL 09/21/15) trimethoprim (From BACTRIM) (Intermediate, ACHILLES HEEL 09/21/15) Beta-Blockers (Beta-Adrenergic Bloc (MD TOLD PT DO NOT TAKE 09/21/15) lisinopril (COUGHING 09/21/15) valsartan (From DIOVAN) (SWELLING TO FEET 09/21/15) atenolol (Intermediate, ORTHOSTATIC HYPOTENSION 09/21/15) Disposition Summary Disposition Principal Diagnosis: UTI Additional Diagnosis: none Discharge Disposition: SNF Discharge Instructions General Discharge Information Code Status: Full Code Patient's Diet: Regular diet Patient's Activity: Independent Follow-Up Instructions/Appts: Please follow-up with her primary care provider next week after discharge Medications at Discharge Discharge Medications: Stop taking the following medications: Nitrofurantoin Monohyd/M-Cryst (Macrobid 100 MG Capsule) 100 MG CAPSULE ORAL TWICE DAILY Qty = 14 Continue taking these medications: Amlodipine Besylate (Amlodipine Besylate) 2.5 MG TABLET 1-2 Tablet ORAL DAILY Qty = 90 Omeprazole (Omeprazole) 20 MG CAPSULE.DR 1 Capsule ORAL as needed for GI Qty = 90 Alprazolam (Alprazolam) 0.5 MG TABLET 1 Tablet ORAL TWICE DAILY Qty = 90 Metronidazole (Metronidazole) 0.75 % LOTION 1 Application On the skin Every Morning Qty = 59 Losartan Potassium (Losartan Potassium) 100 MG TABLET 1 Tablet ORAL Every night Qty = 90 Aspirin (Ecotrin*) 81 MG TABLET.DR 1 Tablet ORAL DAILY Lactose-Reduced Food (Ensure Enlive) 0.08 GRAM-1.5 KCAL/ML LIQUID 1 Can ORAL as needed for SUPPLEMENT Lactose-Reduced Food (Ensure Original) 237 ML LIQUID 1 Can ORAL as needed for SUPPLEMENT Tobramycin (Tobramycin) 0.3 % DROPS 1 Drop In the eye 4 TIMES A DAY Qty = 5 Start taking the following new medications: Cephalexin (Keflex) 500 MG CAPSULE 1 Capsule ORAL EVERY SIX HOURS Qty = 24 No Refills Copies To: JENAE GOMEZ,JOSE
--- NOTE | 2016-06-15 14:50 | Patient Discharge Instructions ---
Discharge Instructions General Discharge Information You were seen/treated for: UTI Special Instructions: 1. Please follow-up with your primary care provider next week after discharge Diet Continue normal diet: Yes Activity Full Activity/No Limits: No Acute Coronary Syndrome Inclusion Criteria At DC or during hospital stay patient has or had the following: ACS DIAGNOSIS No Discharge Core Measures Meds if any: Prescribed or Continued at Discharge Meds if any: NOT Prescribed or Continued at Discharge Congestive Heart Failure Inclusion Criteria At DC or during hospital stay patient has or had the following: CHF DIAGNOSIS No Discharge Core Measures Meds if any: Prescribed or Continued at Discharge Meds if any: NOT Prescribed or Continued at Discharge Cerebrovascular accident Inclusion Criteria At DC or during hospital stay patient has or had the following: CVA/TIA Diagnosis No Discharge Core Measures Meds if any: Prescribed or Continued at Discharge Meds if any: NOT Prescribed or Continued at Discharge Venous thromboembolism Inclusion Criteria VTE Diagnosis No VTE Type NONE VTE Confirmed by (Test) NONE Discharge Core Measures - Per Current guidelines, there needs to be overlap - treatment for the first 5 days of Warfarin therapy. - If discharged on Warfarin prior to 5 days of - overlap therapy, the patient will need to be - assessed for post discharge needs including - *Post discharge parental anticoagulation - *Warfarin and/or parental anticoagulation education - *Follow up date to check INR post discharge At least 5 days overlap therapy as Inpatient No Meds if any: Prescribed or Continued at Discharge Note: Overlap Therapy is Warfarin and Anticoagulant Meds if any: NOT Prescribed or Continued at Discharge
[2016-06-15 23:26] VITALS: BP 138/60
--- NOTE | 2016-06-16 07:23 | PN- Housestaff ---
See Addendum Subjective Follow-up For: UTI Subjective: Afebrile, white blood cell normalized. No acute events reported. No growth of urine culture so far. She continued to improve and denies any current complaint. Review of Systems Constitutional: Reports: no symptoms, see HPI. Denies: chills, fever. Objective Last 24 Hrs of Vital Signs/I&O Vital Signs Date Time Temp Pulse Resp B/P Pulse O2 O2 Flow FiO2 Ox Delivery Rate 06/16 1014 84 138/64 06/16 0808 99.3 77 20 120/58 91 Room Air 06/16 0800 Room Air 06/16 0000 90 Room Air 06/15 2326 99.2 103 20 138/60 90 Room Air 06/15 2117 122/60 06/15 1441 97.7 90 20 126/70 95 Room Air Intake & Output 06/16 1600 06/16 0800 06/16 0000 Intake Total 600 1050 Output Total 200 Balance 600 850 Intake, IV 600 600 Intake, Oral 0 450 Number 0 Bowel Movements Output, Urine 200 Physical Exam General Appearance: Alert, Oriented X3, Cooperative, No Acute Distress Skin: No Rashes HEENT: Atraumatic, PERRLA, EOMI, Mucous Membr. moist/pink Cardiovascular: Regular Rate, Normal S1, Normal S2, No Murmurs Lungs: Clear to Auscultation Abdomen: Soft, No Tenderness Neurological: Normal Speech Extremities: No Clubbing, No Cyanosis, No Edema Current Medications: Current Medications Sig/Bobby Start time Last Medication Dose Route Stop Time Status Admin Acetaminophen 650 MG Q6P PRN 06/14 2315 AC PO Alprazolam 0.5 MG BID 06/15 0130 AC 06/16 PO 06/22 0129 1013 Amlodipine Besylate 2.5 MG DAILY 06/15 1000 AC 06/16 PO 1014 Aspirin Buffered 81 MG DAILY 06/15 1000 AC 06/16 PO 1014 Ceftriaxone Sodium 1,000 MG DAILY 06/14 2315 AC 06/16 IV 1014 Enoxaparin Sodium 40 MG DAILY 06/15 1000 AC 06/16 SC 1014 Losartan Potassium 100 MG QPM 06/15 0130 AC 06/15 PO 2117 Omeprazole 20 MG DAILY AC 06/16 1131 AC 06/16 PO 1234 Patient Medication 1 ED .ST-MED ONE 06/15 1407 [facility] 06/15 1408 Sodium Chloride 1,000 ML Q13H 06/15 0315 AC 06/16 IV 0615 Tobramycin 1 GTT 4 TIMES/DAY 06/14 2302 AC 06/16 OPH 1020 Last 24 Hrs of Lab/Afshin Results Last 24 Hrs of Labs/Mics: Laboratory Tests 06/16/16 0620: CBC w Diff NO MAN DIFF REQ, RBC 3.26 L, MCV 92.9, MCH 31.0, RDW 14.1, MPV 9.6, Gran % 72.2, Lymphocytes % 16.9 L, Monocytes % 6.6, Eosinophils % 3.9, Basophils % 0.4, Absolute Granulocytes 7.0 H, Absolute Lymphocytes 1.6, Absolute Monocytes 0.6, Absolute Eosinophils 0.4, Absolute Basophils 0, PUBS MCHC 33.3 Assessment/Plan Assessment: 89 y/o F with PMHx of recurrent UTI, HTN and diastolic dysfunction who is admitted for UTI, after failing outpatient treatment with Macrobid. #UTI: On day 3 of ceftriaxone with significant clinical improvement. Remains afebrile and with improving leukocytosis. BCx and UCx NGTD, likely secondary to partial treatment. * Continue ceftriaxone 1 g IV daily. * Potential discharge to [facility] living facility in two days. * Antibiotic will be switch to oral upon discharge #Chest pain: Exacerbated by coughing. Troponin on admission negative. EKG, rechecked today, without ST-T wave abnormalities. Most likely musculoskeletal. Diet: Regular Fluids: NS @ 75 cc/hr DVT PPx: Lovenox and ALPs. CODE: FULL Problem List: 1. Hypertension 2. UTI (urinary tract infection) Pain Ratin Pain Location: Assessment plan Pain Goal: Remain pain free Pain Plan: Acetaminophen Tramadol when necessary Tomorrow's Labs & Rationales: CBC to follow-up white blood cell and the drop in H&H
[2016-06-16 08:08] VITALS: BP 120/58
[2016-06-16 08:19] LABS: ABSOLUTE BASOPHIL COUNT 0 /CUMM (0.0-0.2); ABSOLUTE EOSINOPHIL COUNT 0.4 /CUMM (0.0-0.7); ABSOLUTE LYMPH COUNT 1.6 /CUMM (1.2-3.4); ABSOLUTE MONOCYTE COUNT 0.6 /CUMM (0.10-0.60); BASOPHIL % 0.4 % (0.0-2.0); EOSINOPHIL % 3.9 % (0-5); GRANULOCYTE % 72.2 % (42.2-75.2); HEMATOCRIT 30.3 % (37-47); MEAN CORPUSCULAR HGB CONC 33.3 G/DL (33.0-37.0); MEAN CORPUSCULAR VOLUME 92.9 FL (81.0-99.0); MEAN PLATELET VOLUME 9.6 FL (7.4-10.4); PLATELET COUNT 196 /CUMM (130-400); RBC DISTRIBUTION WIDTH 14.1 % (11.5-14.5); RED BLOOD CELL CT 3.26 /CUMM (4.20-5.40); WHITE BLOOD CELL COUNT 9.7 /CUMM (4.8-10.8)
[2016-06-16 14:09] VITALS: BP 102/50
[2016-06-16 22:16] VITALS: BP 122/80
[2016-06-17 07:25] VITALS: BP 140/60
[2016-06-17 08:17] LABS: ABSOLUTE BASOPHIL COUNT 0 /CUMM (0.0-0.2); ABSOLUTE EOSINOPHIL COUNT 0.6 /CUMM (0.0-0.7); ABSOLUTE LYMPH COUNT 1.3 /CUMM (1.2-3.4); ABSOLUTE MONOCYTE COUNT 0.6 /CUMM (0.10-0.60); BASOPHIL % 0.4 % (0.0-2.0); EOSINOPHIL % 7.5 % (0-5); HEMATOCRIT 31.3 % (37-47); MEAN CORPUSCULAR HGB 30.9 PG (27.0-31.0); MEAN CORPUSCULAR HGB CONC 33.3 G/DL (33.0-37.0); MEAN PLATELET VOLUME 9.6 FL (7.4-10.4); PLATELET COUNT 214 /CUMM (130-400); RBC DISTRIBUTION WIDTH 14.3 % (11.5-14.5); RED BLOOD CELL CT 3.36 /CUMM (4.20-5.40); WHITE BLOOD CELL COUNT 8.6 /CUMM (4.8-10.8)
--- NOTE | 2016-06-17 10:05 | PN- Housestaff ---
[facility]4: Subjective Follow-up For: UTI Subjective: Afebrile, white blood cell normalized, looks relaxed and comfortable. No acute overnight events reported. Patient feels significant improvement and would like to be discharged today. Patient denies chills, fever, pain or any other complaints. Review of Systems Constitutional: Reports: no symptoms. Objective Last 24 Hrs of Vital Signs/I&O Vital Signs Date Time Temp Pulse Resp B/P Pulse O2 O2 Flow FiO2 Ox Delivery Rate 06/17 1045 90 130/58 06/17 0725 99.4 87 20 140/60 90 Room Air 06/16 2216 98.2 85 20 122/80 95 06/16 2048 79 142/62 06/16 1600 98 Room Air 06/16 1409 97.3 83 20 102/50 96 Room Air Intake & Output 06/17 1600 06/17 0800 06/17 0000 Intake Total 360 1080 Output Total Balance 360 1080 Intake, IV 600 Intake, Oral 360 480 Physical Exam General Appearance: Alert, Oriented X3, Cooperative, No Acute Distress Skin: No Rashes HEENT: Atraumatic, PERRLA, EOMI, Mucous Membr. moist/pink Cardiovascular: Regular Rate, Normal S1, Normal S2, No Murmurs Lungs: Clear to Auscultation Abdomen: Soft, No Tenderness Neurological: Normal Speech Extremities: No Edema Current Medications: Current Medications Sig/Bobby Start time Last Medication Dose Route Stop Time Status Admin Acetaminophen 650 MG Q6P PRN 06/14 2315 AC PO Alprazolam 0.5 MG BID 06/15 0130 AC 06/17 PO 06/22 0129 1045 Amlodipine Besylate 2.5 MG DAILY 06/15 1000 AC 06/17 PO 1045 Aspirin Buffered 81 MG DAILY 06/15 1000 AC 06/17 PO 1045 Ceftriaxone Sodium 1,000 MG DAILY 06/14 2315 AC 06/17 IV 1045 Enoxaparin Sodium 40 MG DAILY 06/15 1000 AC 06/17 SC 1045 Losartan Potassium 100 MG QPM 06/15 0130 AC 06/16 PO 2048 Omeprazole 20 MG DAILY AC 06/16 1131 AC 06/17 PO 0503 Sodium Chloride 1,000 ML Q13H 06/15 0315 AC 06/17 IV 1044 Tobramycin 1 GTT 4 TIMES/DAY 03/16 2302 AC 06/17 OPH 1052 Last 24 Hrs of Lab/Afshin Results Last 24 Hrs of Labs/Mics: Laboratory Tests 06/17/16 0650: CBC w Diff NO MAN DIFF REQ, RBC 3.36 L, MCV 93.0, MCH 30.9, RDW 14.3, MPV 9.6, Gran % 70.0, Lymphocytes % 15.2 L, Monocytes % 6.9, Eosinophils % 7.5 H, Basophils % 0.4, Absolute Granulocytes 6.0, Absolute Lymphocytes 1.3, Absolute Monocytes 0.6, Absolute Eosinophils 0.6, Absolute Basophils 0, PUBS MCHC 33.3 Assessment/Plan Assessment: 89 y/o F with PMHx of recurrent UTI, HTN and diastolic dysfunction who is admitted for UTI, after failing outpatient treatment with Macrobid. #UTI: On day 4 of ceftriaxone with significant clinical improvement. Remains afebrile and with improving leukocytosis. BCx and UCx NGTD, likely secondary to partial treatment. * Switch ceftriaxone 1 g IV daily to Cefpodoxime 100 mg by mouth twice a day for discharge * Patient will be instructed to take antibiotic for another 10 days to finish a total 14 days * Patient will be discharged today #Chest pain: Exacerbated by coughing. Troponin on admission negative. EKG, rechecked today, without ST-T wave abnormalities. Most likely musculoskeletal. #Physical therapy assurance senior manager insurance will talk to the patient about sending a home physical therapy. She will most likely benefit from this. Diet: Regular Fluids: NS @ 75 cc/hr DVT PPx: Lovenox and ALPs. CODE: FULL Problem List: 1. Hypertension 2. UTI (urinary tract infection) Pain Ratin Pain Location: na Pain Goal: Remain pain free Pain Plan: see A&P Tomorrow's Labs & Rationales: none she is DERICK CERVANTES MD 06/17/16 1333: Attending MD Review Statement Attending Statement Attending MD Statement: examined this patient, discuss w/resident/PA/FISCAL SERVICES MANAGER, agreed w/resident/PA/FISCAL SERVICES MANAGER, reviewed EMR data (avail), discussed with nursing, discussed with case mgmt Attending Assessment/Plan: The patient was seen and discussed with house staff. OK to discharge today with home services. Urine culture no growth thus far. The patient had been on Macrobid prior to admission. Has been on Ceftriaxone here. If culture today is negative will send home on Vantin.
[2016-06-17 14:04] VITALS: BP 140/70
[2016-06-17] MEDS ORDERED: CEFPODOXIME PR100 MG PO (14:27)
== END 2016-06-17 16:25 | disposition home health service (06) | DRG 690 ==
LOC: ENRESERVDT → ENRESERVTM → ERH 15:25 → 2NA 21:35 → ERHI 21:35 → 2NA 06-15 01:10
PROVIDERS: Dermatology; Emergency Medicine; Internal Medicine Hematology & Oncology; Student in an Organized Health Care Education/Training Program; ADMIT Internal Medicine
DX: N39.0 Urinary tract infection, site not specified (principal); Q61.9 Cystic kidney disease, unspecified; I10 Essential (primary) hypertension; D32.9 Benign neoplasm of meninges, unspecified; E78.5 Hyperlipidemia, unspecified; E04.9 Nontoxic goiter, unspecified; F41.9 Anxiety disorder, unspecified; H10.409 Unspecified chronic conjunctivitis, unspecified eye; I95.1 Orthostatic hypotension; K57.90 Diverticulosis of intestine, part unspecified, without perforation or abscess without bleeding
CPT/HCPCS: 2NASP; ERO; 36415; 74177; 81001; 82436; 87040; 87086; 87804; 87804-59; 93005; 93010; 96360; 96361; 97116-GO; 97161-GP; 97530-GO; J0696; J1650; J3490

== ENCOUNTER 2016-06-17 21:17 | Emergency (ER) | payer OTHER, MEDICARE ==
[~2016-06-17] VITALS: Ht 152.4 cm; Wt 49.9 kg
[~2016-06-17 21:17] MED LIST changes: +CEFPODOXIME PR100 MG PO; +TOBRAMYCIN5 ML OPH
--- NOTE | 2016-06-17 21:39 | ED AMS/SEIZURE/WEAK/DIZZY ---
History of Present Illness General Chief Complaint: General Adult Stated Complaint: PT WAS SIB FOR POSSIBLE SEPTIC Source: patient, family Exam Limitations: no limitations Vital Signs & Intake/Output Vital Signs & Intake/Output Vital Signs Date Time Temp Pulse Resp B/P Pulse O2 O2 Flow FiO2 Ox Delivery Rate 06/18 0630 98.7 84 18 153/70 97 Room Air 06/18 0140 98.4 77 18 137/65 98 Room Air 06/17 2240 100.6 92 18 144/67 96 Room Air 06/17 2212 Room Air 06/17 2130 99.3 101 18 145/70 95 Room Air ED Intake and Output 06/18 0000 06/17 1200 Intake Total 0 Output Total Balance 0 Intake, Oral 0 Patient 110 lb Weight Allergies Coded Allergies: oxycodone (From PERCOCET) (Intermediate, FELT KIND OF CRAZY 09/21/15) sulfamethoxazole (From BACTRIM) (Intermediate, ACHILLES HEEL 09/21/15) trimethoprim (From BACTRIM) (Intermediate, ACHILLES HEEL 09/21/15) Beta-Blockers (Beta-Adrenergic Bloc (MD TOLD PT DO NOT TAKE 09/21/15) lisinopril (COUGHING 09/21/15) valsartan (From DIOVAN) (SWELLING TO FEET 09/21/15) atenolol (Intermediate, ORTHOSTATIC HYPOTENSION 09/21/15) Reconcile Medications Alprazolam 0.5 MG TABLET 1 TAB PO BID ANXIETY (Reported) Amlodipine Besylate 2.5 MG TABLET 1-2 TAB PO DAILY BP (Reported) Aspirin (Ecotrin*) 81 MG TABLET.DR 1 TAB PO DAILY HEART/BLOOD (Reported) Cefpodoxime Proxetil 100 MG TABLET 1 TAB PO BID UTI Lactose-Reduced Food (Ensure Enlive) 0.08 GRAM-1.5 KCAL/ML LIQUID 1 CAN PO PRN SUPPLEMENT (Reported) Lactose-Reduced Food (Ensure Original) 237 ML LIQUID 1 CAN PO PRN SUPPLEMENT (Reported) Losartan Potassium 100 MG TABLET 1 TAB PO QPM BP (Reported) Metronidazole 0.75 % LOTION 1 JI TOP QAM ROSACEA (Reported) Omeprazole 20 MG CAPSULE.DR 1 CAP PO PRN GI (Reported) Tobramycin 0.3 % DROPS 1 GTT OPH 4 TIMES/DAY BOTH EYES (Reported) Triage Note: PT TO TRIAGE BY REFERRAL OF HER PCP TO R/O SEPSIS. PT WAS DC FROM [facility] TODAY WITH UTI AND DEVELOPED A FEVER AT HOME 102.3, PT TOOK TYLENOL AT 8PM. TEMP 99.3 IN TRIAGE. MD [place] TO TRIAGE FOR PT EVAL. Triage Nurses Notes Reviewed? yes Onset: Gradual Duration: hour(s):, getting worse Timing: recent history Injury Environment: home Severity: moderate Modifying Factors: Improves With: rest. Associated Symptoms: FEVER, RIGORS HPI: 89 yo woman discharged earlier today after being treated for a urinary tract infection. Upon arrival at home, she developed rigors and fever up to 102. She notes also weakness, decreased oral intake, mild chest discomfort and dyspnea over the past several days. No diarrhea, nausea, vomiting, rashes. She is otherwise well. ([place] GOMEZ,SHOLA Ji) Past History Travel History Traveled to [place] past 21 day No Medical History Any Pertinent Medical History? 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 No ([place] GOMEZ,SHOLA Ji) Review of Systems Review of Systems Constitutional: Reports: no symptoms. EENTM: Reports: no symptoms. Respiratory: Reports: no symptoms. Cardiovascular: Reports: no symptoms. GI: Reports: no symptoms. Genitourinary: Reports: no symptoms. Musculoskeletal: Reports: no symptoms. Skin: Reports: no symptoms. Neurological/Psychological: Reports: no symptoms. Hematologic/Endocrine: Reports: no symptoms. Immunologic/Allergic: Reports: no symptoms. All Other Systems: Reviewed and Negative ([place] GOMEZ,SHOLA Ji) Physical Exam Physical Exam General Appearance: well developed/nourished, mild distress Head: atraumatic, normal appearance Eyes: Bilateral: normal appearance. Ears, Nose, Throat: normal pharynx, normal ENT inspection Neck: normal inspection, supple, full range of motion Respiratory: normal breath sounds, chest non-tender, no respiratory distress, quiet respiration, lungs clear Cardiovascular: regular rate/rhythm Gastrointestinal: normal bowel sounds, soft, non-tender, no organomegaly Back: normal inspection, normal range of motion Extremities: normal range of motion Neurologic/Psych: no motor/sensory deficits, awake, alert, oriented x 3 Skin: intact, normal color, warm/dry Core Measures ACS in differential dx? No CVA/TIA Diagnosis: No Severe Sepsis Present: No Septic Shock Present: No ([place] GOMEZ,SHOLA Ji) Progress Differential Diagnosis: dehydration, electrolyte imbalance, sepsis, UTI/pyelo, pneumonia vs other. Plan of Care: Orders Procedure Date/time Status Heart Healthy Diet 06/18 B Active PT Evaluate & Treat 06/18 306 Active CASE MANAGEMENT CONSULT 06/18 306 Active BLOOD CULTURE 06/18 2139 Active CULTURE,URINE 06/17 2138 Active BLOOD CULTURE 06/17 2138 Active URINALYSIS 06/17 2138 Complete TROPONIN LEVEL 06/17 2138 Complete COMPREHENSIVE METABOLIC PANEL 06/17 2138 Complete CBC WITHOUT DIFFERENTIAL 06/17 2138 Complete EKG 06/17 2138 Active Current Medications Sig/Bobby Start time Last Medication Dose Stop Time Status Admin Alprazolam 0.5 MG BID 06/18 1000 AC (Xanax) 06/25 0959 Amlodipine Besylate 5 MG DAILY 06/18 1000 UNVr (Norvasc) Laboratory Tests 06/18/16 0138: Urine Color YEL, Urine Clarity CLEAR, Urine pH 6.0, Ur Specific [place] 1.015, Urine Protein NEG, Urine Ketones NEG, Urine Nitrite NEG, Urine Bilirubin NEG, Urine Urobilinogen 0.2, Ur Leukocyte Esterase NEG, Ur Microscopic EXAM NOT REQUIRED, Urine Hemoglobin NEG, Urine Glucose NEG 06/17/16 2316: Anion Gap 7, Estimated GFR > 60, BUN/Creatinine Ratio 16.0, Glucose 144 H, Calcium 8.7, Total Bilirubin 0.4, AST 16, ALT 34, Alkaline Phosphatase 75, Troponin I 0.02, Total Protein 5.5 L, Albumin 2.8 L, Globulin 2.7, Albumin/ Globulin Ratio 1.0 L 06/17/16 2203: CBC w Diff NO MAN DIFF REQ, RBC 3.78 L, MCV 93.0, MCH 31.0, RDW 13.8, MPV 9.7, Gran % 80.3 H, Lymphocytes % 12.4 L, Monocytes % 2.0, Eosinophils % 5.3 H, Basophils % 0 L, Absolute Granulocytes 7.5 H, Absolute Lymphocytes 1.2, Absolute Monocytes 0.2, Absolute Eosinophils 0.5, Absolute Basophils 0, PUBS MCHC 33.3 Microbiology 06/18 0138 URINE ROUT: Urine Culture - RECD 06/18 2207 BLOOD: Blood Culture - RECD 06/17 2199 BLOOD: Blood Culture - RECD Diagnostic Imaging: Viewed by Me: Radiology Read. Discussed w/RAD: Radiology Read. CXR Impression: airspace disease w/ effusion Initial ED EKG: normal axis, normal intervals, normal p-waves, normal QRS complex, normal sinus rhythm Hand-Off Endorsed To: GAETANO ROMERO MD Endorsed Time: 0700 Pending: consult Comments: PATIENT: DIANE SANCHEZ PRESENT AGE: 89 PATIENT ACCOUNT NO: [id number] : [birth year] LOCATION: [facility] ORDERING PHYSICIAN: SHOLA COLEMAN MD SERVICE DATE: 06/17/16 EXAM TYPE: RAD - XRY-CHEST XRAY, PA AND LATERAL EXAMINATION: CHEST 1 VIEW CLINICAL INFORMATION: Fever. COMPARISON: 06/14/2016. TECHNIQUE: An AP view of the chest is provided. FINDINGS: The cardiac silhouette is not enlarged. The mediastinal and hilar contours are unremarkable. There is airspace disease in the posterior basal segment of the left lower lobe along with a small left pleural effusion The osseous structures are unremarkable. IMPRESSION: Small left pleural effusion with associated airspace disease. DICTATED BY: DERICK POLLOCK MD DATE/TIME DICTATED:06/17/162234 SET UP PERSON:ARTEM DATE/TIME TRANSCRIBED:06/17/162234 CONFIDENTIAL, DO NOT COPY WITHOUT APPROPRIATE AUTHORIZATION. <Electronically signed in Other Vendor System> SIGNED BY: DERICK POLLOCK MD 06/17/162238 ([place] GOMEZ,SHOLA Ji) Comments: Patient has been seen and evaluated by physical therapy. Patient is cleared to be discharged home. Home services has been ordered with help with case management. Patient is stable for discharge. (GAETANO ROMERO MD) Departure Departure Condition: Stable Clinical Impression Primary Impression: Weakness Referrals: JENAE GOMEZ,JOSE (PCP/Family) Departure Forms: Customer Survey General Discharge Information Comments 06/18/16, 3:00am... pt with stable labs, stable in ED.... pt given ceftriaxone to continue her treatment for uti... pt feels unsafe at home... will assess for inpt rehab in am. ([place] GOMEZ,SHOLA Ji) Departure Disposition: HOME OR SELF CARE Additional Instructions: FOLLOW UP WITH YOUR DOCTOR RETURN IF SYMPTOMS WORSEN OR FOR ANY COCNERNS (HEATHER GOMEZ,GAETANO Benitez)
[2016-06-17 22:19] LABS: ABSOLUTE BASOPHIL COUNT 0 /CUMM (0.0-0.2); ABSOLUTE EOSINOPHIL COUNT 0.5 /CUMM (0.0-0.7); ABSOLUTE GRANULOCYTE CT 7.5 /CUMM (1.4-6.5); ABSOLUTE LYMPH COUNT 1.2 /CUMM (1.2-3.4); ABSOLUTE MONOCYTE COUNT 0.2 /CUMM (0.10-0.60); BASOPHIL % 0 % (0.0-2.0); EOSINOPHIL % 5.3 % (0-5); GRANULOCYTE % 80.3 % (42.2-75.2); HEMATOCRIT 35.2 % (37-47); MEAN CORPUSCULAR HGB CONC 33.3 G/DL (33.0-37.0); MEAN PLATELET VOLUME 9.7 FL (7.4-10.4); RBC DISTRIBUTION WIDTH 13.8 % (11.5-14.5); RED BLOOD CELL CT 3.78 /CUMM (4.20-5.40); WHITE BLOOD CELL COUNT 9.3 /CUMM (4.8-10.8)
[2016-06-17 22:22] LABS: PLATELET COUNT 327 /CUMM (130-400)
--- NOTE | 2016-06-17 22:39 | RADIOLOGY REPORT ---
EXAMINATION: CHEST 1 VIEW CLINICAL INFORMATION: Fever. COMPARISON: 06/14/2016. TECHNIQUE: An AP view of the chest is provided. FINDINGS: The cardiac silhouette is not enlarged. The mediastinal and hilar contours are unremarkable. There is airspace disease in the posterior basal segment of the left lower lobe along with a small left pleural effusion The osseous structures are unremarkable. IMPRESSION: Small left pleural effusion with associated airspace disease.
[2016-06-18 09:20] VITALS: BP 145/72
== END 2016-06-18 09:30 ==
LOC: ERH 21:17
PROVIDERS: Pediatrics
DX: R53.1 Weakness (principal); R07.89 Other chest pain; R06.00 Dyspnea, unspecified
CPT/HCPCS: 81003; 87040; 87086; 93005; 93010; 97110-GP; 97116-GP; 97161-GP; G8978-GP; G8979-GP; G8980-GP; J0696

== ENCOUNTER 2016-08-09 12:04 | Emergency (ER) | payer OTHER, MEDICARE ==
[~2016-08-09] VITALS: Ht 154.9 cm; Wt 49.0 kg
--- NOTE | 2016-08-09 14:52 | ED GI/GU/ABDOMINAL COMPLAINT ---
History of Present Illness General Chief Complaint: General Adult Stated Complaint: SENT BY DR KOHLER FOR EVAL ?UTI Source: patient, family (brother), old records Exam Limitations: no limitations Vital Signs & Intake/Output Vital Signs & Intake/Output Vital Signs Date Time Temp Pulse Resp B/P B/P Pulse O2 O2 Flow FiO2 Mean Ox Delivery Rate 08/09 1650 97 Room Air 08/09 1649 98.8 78 18 141/65 97 Room Air 08/09 1223 99.4 94 15 118/67 94 Room Air Room Air Allergies Coded Allergies: oxycodone (From PERCOCET) (Intermediate, FELT KIND OF CRAZY 08/09/16) sulfamethoxazole (From BACTRIM) (Intermediate, ACHILLES HEEL 08/09/16) trimethoprim (From BACTRIM) (Intermediate, ACHILLES HEEL 08/09/16) Beta-Blockers (Beta-Adrenergic Bloc (MD TOLD PT DO NOT TAKE 08/09/16) lisinopril (COUGHING 08/09/16) valsartan (From DIOVAN) (SWELLING TO FEET 08/09/16) atenolol (Intermediate, ORTHOSTATIC HYPOTENSION 08/09/16) Reconcile Medications Alprazolam 0.5 MG TABLET 1 TAB PO BID ANXIETY (Reported) Amlodipine Besylate 2.5 MG TABLET 1-2 TAB PO DAILY BP (Reported) Aspirin (Ecotrin*) 81 MG TABLET. 1 TAB PO DAILY HEART/BLOOD (Reported) Cefpodoxime Proxetil 100 MG TABLET 1 TAB PO BID UTI Cephalexin (Keflex) 500 MG CAPSULE 1 CAP PO BID UTI Lactose-Reduced Food (Ensure Enlive) 0.08 GRAM-1.5 KCAL/ML LIQUID 1 CAN PO PRN SUPPLEMENT (Reported) Lactose-Reduced Food (Ensure Original) 237 ML LIQUID 1 CAN PO PRN SUPPLEMENT (Reported) Losartan Potassium 100 MG TABLET 1 TAB PO QPM BP (Reported) Metronidazole 0.75 % LOTION 1 JI TOP QAM ROSACEA (Reported) Omeprazole 20 MG CAPSULE. 1 CAP PO PRN GI (Reported) Tobramycin 0.3 % DROPS 1 GTT OPH 4 TIMES/DAY BOTH EYES (Reported) Triage Note: PT SENT TO ED BY DR. KOHLER FOR EVAL OF ?UTI. PT WAS BEING TREATED OUTPATIENT FOR UTI WITH PO ANTIBIOTICS. PT WAS GIVEN MULTIPLE ANTIBIOTICS AND PT STILL FEELS LIKE UTI IS ACTIVE. "I THINK I HAVE A BLADDER INFECTION NOW." PT REPORTS SUBJECTIVE FEVER 101.1. R LOW BACK PAIN AND RLQ PAIN WELL. Triage Nurses Notes Reviewed? yes ? n Is pt currently ? No HPI: Patient is an 89-year-old female presents complaining of dysuria and fevers. Dysuria onset 2 days ago. Fever onset yesterday. Fever up to 101F. Patient called her doctor and was instructed to take nitrofurantoin. Patient reports that she had a bad reaction to nitrofurantoin previously. Patient went to her spacer type bar and segment today and was referred to the emergency department due to appearing very weak. Patient reports that yesterday evening she bent over to pick up attendant something and gently fell to the ground and was not able to get up for at least 5 or 6 hours. Pain is currently 0 out of 10. Mild dyspnea yesterday. Weakness gradually improving. Patient denies vomiting, diarrhea, chest pain, abdominal pain. (LIZ ACUÑA) Past History Travel History Traveled to [place] past 21 day No Medical History Any Pertinent Medical History? 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 No (LIZ ACUÑA) Review of Systems Review of Systems Constitutional: Reports: chills, fever, malaise. EENTM: Reports: no symptoms. Respiratory: Reports: cough. Denies: short of breath. Cardiovascular: Denies: chest pain. GI: Denies: abdominal pain, nausea, vomiting. Genitourinary: Reports: dysuria, urgency. Musculoskeletal: Denies: back pain. Skin: Reports: no symptoms. Neurological/Psychological: Reports: no symptoms. Hematologic/Endocrine: Reports: no symptoms. Immunologic/Allergic: Reports: no symptoms. (LIZ ACUÑA) Physical Exam Physical Exam General Appearance: well developed/nourished, alert, awake Head: atraumatic, normal appearance Eyes: Bilateral: normal appearance, PERRL, EOMI. Ears, Nose, Throat, Mouth: hearing grossly normal, moist mucous membrane Neck: normal inspection, supple, full range of motion Respiratory: normal breath sounds, chest non-tender, no respiratory distress, lungs clear Cardiovascular: regular rate/rhythm Gastrointestinal: normal bowel sounds, soft, non-tender Back: normal inspection, normal range of motion, mild right cva tenderness Extremities: normal range of motion Neurologic/Psych: awake, alert, oriented x 3, normal gait (with cane), normal mood/affect Skin: intact, normal color, warm/dry Core Measures ACS in differential dx? No Severe Sepsis Present: No Septic Shock Present: No (LIZ ACUÑA) Progress Differential Diagnosis: UTI/pyelo, sepsis, pneumonia, intra-abdominal infection, electrolyte abnormality, anemia Plan of Care: Orders Procedure Date/time Status CULTURE,URINE 08/09 1505 Active BLOOD CULTURE 08/09 1505 Active LACTIC ACID 08/09 1505 Complete COMPREHENSIVE METABOLIC PANEL 08/09 1505 Complete CBC WITHOUT DIFFERENTIAL 08/09 1505 Complete URINALYSIS 08/09 1226 Complete Current Medications Sig/Bobby Start time Last Medication Dose Stop Time Status Admin Cephalexin 500 MG ONCE ONE 08/09 1845 AC (Keflex) 08/09 1846 Ceftriaxone Sodium 1,000 MG ONCE ONE 08/09 1815 CAN (Rocephin) 08/09 1816 Laboratory Tests 08/09/16 1805: Lactic Acid Cancelled 08/09/16 1700: Urinalysis LIGHT H, Urine Color YEL, Urine Clarity HAZY H, Urine pH 6.0, Ur Specific [place] 1.025, Urine Protein 30 H, Urine Ketones 15 H, Urine Nitrite NEG, Urine Bilirubin NEG, Urine Urobilinogen 0.2, Ur Leukocyte Esterase TRACE H , Ur Microscopic SEDIMENT EXAMINED, Urine RBC RARE, Urine WBC 3-5 H, Ur Epithelial Cells FEW, Urine Bacteria FEW H, Hyaline Casts 1-3 H, Granular Casts 1-3 H, Urine Mucus MANY H, Urine Hemoglobin NEG, Urine Glucose NEG 08/09/16 1638: CBC w Diff NO MAN DIFF REQ, RBC 3.94 L, MCV 93.5, MCH 31.1 H, RDW 14.6 H, MPV 9.7, Gran % 85.7 H, Lymphocytes % 11.1 L, Monocytes % 2.2, Eosinophils % 0.9, Basophils % 0.1, Absolute Granulocytes 9.4 H, Absolute Lymphocytes 1.2, Absolute Monocytes 0.2, Absolute Eosinophils 0.1, Absolute Basophils 0, PUBS MCHC 33.3 08/09/16 1623: Anion Gap 10, Estimated GFR > 60, BUN/Creatinine Ratio 18.6, Glucose 92, Lactic Acid 0.9, Calcium 9.9, Total Bilirubin 0.9, AST 25, ALT 32, Alkaline Phosphatase 88, Total Protein 6.9, Albumin 4.0, Globulin 2.9, Albumin/Globulin Ratio 1.4 Microbiology 08/09 170 URINE ROUT: Urine Culture - RECD 08/09 163 BLOOD: Blood Culture - RECD 08/09 162 BLOOD: Blood Culture - RECD 183: Patient re-evaluated multiple times. Afebrile, nontoxic appearing. Appears stable for discharge on oral antibiotics. Discussed with and seen by Dr. Langley. (LIZ ACUÑA) Initial ED EKG: none (LIZ ACUÑA) Departure Departure Time of Disposition: 1837 Disposition: HOME OR SELF CARE Condition: Stable Clinical Impression Primary Impression: Urinary tract infection Referrals: JOSE EMANUEL MD (PCP/Family) Additional Instructions: Follow up with your primary doctor within 1 week for recheck and further evaluation. Call in the morning for appointment. Return to the ER if fevers returning, vomiting, or worsening of symptoms. Departure Forms: Customer Survey General Discharge Information Prescriptions: Current Visit Scripts Cephalexin (Keflex) 1 CAP PO BID #[id number] CAP (LIZ ACUÑA) PA/AUTOMATION SOFTWARE ENGINEER Co-Sign Statement Statement: ED Attending supervision documentation- [X] I saw and evaluated the patient. I have also reviewed all the pertinent lab results and diagnostic results. I agree with the findings and the plan of care as documented in the PA's/AUTOMATION SOFTWARE ENGINEER's documentation. [] I have reviewed the ED Record and agree with the PA's/AUTOMATION SOFTWARE ENGINEER's documentation. [] Additions or exceptions (if any) to the PAs/AUTOMATION SOFTWARE ENGINEER's note and plan are summarized below: [] (JOSE GOMEZ,HOLLY Blanco)
--- NOTE | 2016-08-09 15:54 | RADIOLOGY REPORT ---
EXAMINATION: XR CHEST CLINICAL INFORMATION: 89-year-old fever with shortness of breath, fevers and weakness. COMPARISON: 06/17/2016 TECHNIQUE: 2 views of the chest were obtained. FINDINGS: The cardiomediastinal silhouette is within normal limits. There is no focal consolidation, pleural effusion or pneumothorax. No acute osseous or metallic. Degenerative changes are seen within the thoracic spine. IMPRESSION: No radiographic evidence of acute pulmonary disease.
[2016-08-09 17:42] LABS: ABSOLUTE BASOPHIL COUNT 0 /CUMM (0.0-0.2); ABSOLUTE EOSINOPHIL COUNT 0.1 /CUMM (0.0-0.7); ABSOLUTE GRANULOCYTE CT 9.4 /CUMM (1.4-6.5); ABSOLUTE LYMPH COUNT 1.2 /CUMM (1.2-3.4); ABSOLUTE MONOCYTE COUNT 0.2 /CUMM (0.10-0.60); BASOPHIL % 0.1 % (0.0-2.0); EOSINOPHIL % 0.9 % (0-5); HEMATOCRIT 36.9 % (37-47); MEAN CORPUSCULAR HGB 31.1 PG (27.0-31.0); MEAN CORPUSCULAR HGB CONC 33.3 G/DL (33.0-37.0); MEAN CORPUSCULAR VOLUME 93.5 FL (81.0-99.0); MEAN PLATELET VOLUME 9.7 FL (7.4-10.4); PLATELET COUNT 206 /CUMM (130-400); RBC DISTRIBUTION WIDTH 14.6 % (11.5-14.5); RED BLOOD CELL CT 3.94 /CUMM (4.20-5.40)
[2016-08-09 17:59] LABS: GRANULOCYTE % 85.7 % (42.2-75.2)
[2016-08-09] MEDS ORDERED: KEFLEX500 M1 PO (18:39)
[2016-08-09 19:06] VITALS: BP 138/60
== END 2016-08-09 19:07 ==
LOC: ERH 12:04
PROVIDERS: Physician Assistant
DX: N39.0 Urinary tract infection, site not specified (principal); R50.9 Fever, unspecified; I10 Essential (primary) hypertension
CPT/HCPCS: 81001; 87040; 87086

== ENCOUNTER 2016-08-19 15:55 | Emergency (ER) | payer OTHER, MEDICARE ==
[~2016-08-19] VITALS: Ht 154.9 cm; Wt 47.6 kg
[~2016-08-19 15:55] MED LIST changes: +KEFLEX500 M1 PO
--- NOTE | 2016-08-19 17:32 | ED GI/GU/ABDOMINAL COMPLAINT ---
History of Present Illness General Chief Complaint: Abdominal Pain/Flank Pain Stated Complaint: ABD PAIN, +ND, MED REACTION Source: patient, old records Exam Limitations: no limitations Vital Signs & Intake/Output Vital Signs & Intake/Output Vital Signs Date Time Temp Pulse Resp B/P B/P Pulse O2 O2 Flow FiO2 Mean Ox Delivery Rate 08/19 2041 98.7 82 18 146/84 98 Room Air 08/19 1928 98.6 80 16 148/82 97 Room Air 08/19 183 Room Air Room Air 08/19 162 98.6 84 15 134/90 96 Room Air Room Air Allergies Coded Allergies: oxycodone (From PERCOCET) (Intermediate, FELT KIND OF CRAZY 08/19/16) sulfamethoxazole (From BACTRIM) (Intermediate, ACHILLES HEEL 08/19/16) trimethoprim (From BACTRIM) (Intermediate, ACHILLES HEEL 08/19/16) Beta-Blockers (Beta-Adrenergic Bloc (MD TOLD PT DO NOT TAKE 08/19/16) lisinopril (COUGHING 08/19/16) valsartan (From DIOVAN) (SWELLING TO FEET 08/19/16) atenolol (Intermediate, ORTHOSTATIC HYPOTENSION 08/19/16) cephalexin (GI UPSET 08/19/16) Reconcile Medications Alprazolam 0.5 MG TABLET 1 TAB PO BID ANXIETY (Reported) Amlodipine Besylate 2.5 MG TABLET 1-2 TAB PO DAILY BP (Reported) Aspirin (Ecotrin*) 81 MG TABLET.DR 1 TAB PO DAILY HEART/BLOOD (Reported) Hypromellose (Systane Gel) 0.3 % GEL..GRAM. 1 JI OPH QPM BOTH EYES (Reported ) Lactose-Reduced Food (Ensure Enlive) 0.08 GRAM-1.5 KCAL/ML LIQUID 1 CAN PO PRN SUPPLEMENT (Reported) Losartan Potassium 100 MG TABLET 1 TAB PO QPM BP (Reported) Metronidazole 0.75 % LOTION 1 JI TOP QAM ROSACEA (Reported) Mineral Oil/Petrolatum,White (Refresh P.m. Ointment) 42.5 %-57.3 % OINT...G. 1 JI OPH QPM BOTH EYES (Reported) Omeprazole 20 MG CAPSULE.DR 1 CAP PO PRN GI (Reported) Triage Note: PT TO ED FOR ABD PAIN AND LOOSE STOOLS. RECENTLY STARTED ON CEPHALEXIN FOR UTI AND NOW IS EXPERIENCEING GI UPSET. DENIES VOMITING. Triage Nurses Notes Reviewed? yes ? N Is pt currently ? No Duration: better Timing: recent history Quality/Severity: cramping Severity Numbers: 1 Location: generalized abdomen Radiation: no radiation HPI: Patient is a 89-year-old female who presents to emergency room stating that on June 09 she was diagnosed at [facility] for concerns of urinary tract infection where she was given a prescription of Keflex where patient began this medication the following day which patient has been compliant with medications however on Saturday 2 days ago patient developed a gradual onset of abdominal discomfort and loose watery diarrhea production. Patient states that Saturday and Saturday symptoms were intermittent. Patient states that today symptoms have improved Patient states that she's had multiple 5 episodes of loose watery diarrhea production with no blood no melena noted patient presents emergency room in which she read adverse reactions on the medication stating that she has abdominal pain or diarrhea to present to emergency room. Patient is able tolerate by mouth. Denies any fever chills chest pain shortness of breath cough back pain vaginal bleeding or discharge. Denies any nausea or vomiting. Patient denies any current abdominal pain or nausea. (JESUS MANUEL DINERO) Past History Travel History Traveled to [place] past 21 day No Medical History Any Pertinent Medical History? 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 No (JESUS MANUEL DINERO) Review of Systems Review of Systems Constitutional: Reports: no symptoms. EENTM: Reports: no symptoms. Respiratory: Reports: no symptoms. Cardiovascular: Reports: no symptoms. GI: Reports: see HPI, abdominal pain, nausea. Genitourinary: Reports: no symptoms. Musculoskeletal: Reports: no symptoms. Skin: Reports: no symptoms. Neurological/Psychological: Reports: no symptoms. Hematologic/Endocrine: Reports: no symptoms. Immunologic/Allergic: Reports: no symptoms. All Other Systems: Reviewed and Negative (JESUS MANUEL DINERO) Physical Exam Physical Exam General Appearance: no apparent distress, alert, comfortable Gastrointestinal: normal bowel sounds, soft, non-tender Comments: Well-developed well-nourished person in no acute distress HEENT: Normal EENT exam,. Neck: Supple, no lymphadenopathy, normal range of motion without pain or tenderness Back: Nontender, no CVA tenderness. Cardiovascular: Regular rate and rhythms no murmurs rubs or gallops, normal JVP Respiratory: Chest nontender. No respiratory distress.breath sounds clear to auscultation bilaterally Abdomen: Soft, nontender nondistended, no appreciable organomegaly. Normal bowel sounds. No ascites Extremity: No edema, no calf tenderness to palpation, normal and equal pulses. Neuro: Alert oriented x3, motor sensory normal, Skin: No appreciable rash on exposed skin, skin is warm and dry. Psych: Mood and affect is normal, memory and judgment is normal. Core Measures ACS in differential dx? No Severe Sepsis Present: No Septic Shock Present: No (JESUS MANUEL DINERO) Progress Differential Diagnosis: AAA, AMI, appendicitis, biliary colic, bowel obstruction , colon cancer, cholecystitis, diverticulitis, endometritis, esophageal varices, gastritis, hepatitis, hernia, hemorrhoids, ischemic bowel, inflamm bowel dis, intrauterine , kidney stone, Hedy-Suresh tear, ovarian cyst, ovarian torsion, pancreatitis, PID/cervicitis, peptic ulcer, PUD/GERD, perforated viscous, SBO, UTI/pyelo, C.DIFF Plan of Care: Orders Procedure Date/time Status URINALYSIS 08/19 1800 Complete COMPREHENSIVE METABOLIC PANEL 08/19 1800 Complete CBC WITHOUT DIFFERENTIAL 08/19 1800 Complete Laboratory Tests 08/19/161999: Urinalysis LIGHT H, Urine Color YEL, Urine Clarity CLEAR, Urine pH 6.5, Ur Specific [place] <= 1.005, Urine Protein NEG, Urine Ketones TRACE H, Urine Nitrite NEG, Urine Bilirubin NEG, Urine Urobilinogen 0.2, Ur Leukocyte Esterase MOD H, Ur Microscopic SEDIMENT EXAMINED, Urine RBC RARE, Urine WBC 3-5 H, Ur Epithelial Cells MOD H, Urine Bacteria FEW H, Urine Mucus FEW, Urine Hemoglobin NEG, Urine Glucose NEG 08/19/16 1850: Anion Gap 9, Estimated GFR > 60, BUN/Creatinine Ratio 13.3, Glucose 86, Calcium 8.8, Total Bilirubin 0.6, AST 19, ALT 33, Alkaline Phosphatase 67, Total Protein 6.1 L, Albumin 3.4 L, Globulin 2.7, Albumin/Globulin Ratio 1.3, RBC 3.72 L, MCV 93.0, MCH 30.5, RDW 15.1 H, MPV 8.6, Gran % 65.7, Lymphocytes % 25.5, Monocytes % 7.1, Eosinophils % 1.2, Basophils % 0.5, Absolute Granulocytes 4.6, Absolute Lymphocytes 1.8, Absolute Monocytes 0.5, Absolute Eosinophils 0.1, Absolute Basophils 0, PUBS MCHC 32.8 L Microbiology 08/19 180 STOOL: Clostridium difficile Toxin A & B - CAN Cancelled: Cancelled via OE: NOT REQUIRED Currently patient is asymptomatic has no pain upon palpation afebrile. Blood work stool culture and CT scan will be ordered. Patient was reevaluated on multiple occasions and currently is resting comfortably in no apparent distress Blood work was unremarkable CT scan showed concerns of inflammatory signs and which again patient has nontender abdomen and due to history of present illness and exam findings most likely patient's symptoms are adverse drug reaction of diarrhea and abdominal discomfort from previously administered Keflex. Patient' s urinalysis was unremarkable. Patient was able tolerate by mouth upon discharge patient was strongly advised to follow-up with discharge instructions and plan. Discussed disposition plan with Dr. Mcginnis who agrees (ROBIN VELASQUEZ,JESUS MANUEL) Diagnostic Imaging: Viewed by Me: CT Scan. Radiology Impression: SEE COMMENTS Initial ED EKG: none Comments: PATIENT: DIANE SANCHEZ PRESENT AGE: 89 PATIENT ACCOUNT NO: [id number] : [birth year] LOCATION: [facility] ORDERING PHYSICIAN: JESUS MANUEL VELASQUEZ SERVICE DATE: 08/19/16 EXAM TYPE: CAT - CT ABD & PELVIS W IV CONTRAST EXAMINATION: CT ABDOMEN AND PELVIS WITH CONTRAST CLINICAL INFORMATION: Abdominal pain and diarrhea. History of right renal cyst aspiration. COMPARISON: CT abdomen and pelvis 06/14/2016, 08/07/2013, 11/02/2008 TECHNIQUE: Multidetector volumetric imaging was performed of the abdomen and pelvis before and after the IV administration of 94 mL of Optiray 320 intravenous contrast. Sagittal and coronal reformatted images were obtained on the technologist's workstation. DLP: 253 mGy-cm FINDINGS: LUNG BASES: There is bibasilar atelectasis LIVER, GALLBLADDER, AND BILIARY TREE: The liver is mildly low in attenuation. A heterogeneous area within segment 4A is most suggestive of fatty sparing. There is mild to moderate intrahepatic biliary dilatation. The common bile duct measures 0.7 cm at the distal aspect. The patient is status post cholecystectomy. PANCREAS: The pancreatic duct is mildly prominent measuring between 0.3 and 0.4 cm. The pancreas is otherwise unremarkable. SPLEEN: Unremarkable. ADRENAL GLANDS: Unremarkable. KIDNEYS AND URETERS: The kidneys enhance symmetrically and excrete contrast normally. There are numerous bilateral hypoattenuating lesions. The largest is located in the upper pole of the right kidney measuring up to 5.8 cm. This lesion is partially exophytic and was previously targeted for drainage. Hypoechoic lesion at the upper pole of the left kidney measures 2.2 cm is consistent with a cyst. There are bilateral subcentimeter hypodense structures of both kidneys which are too small to characterize but statistically likely represent cysts.. BLADDER: Unremarkable. GASTROINTESTINAL TRACT: There are no dilated loops of large or small bowel. Normal appendix is visualized in the right lower quadrant. There are scattered diverticula mostly involving the sigmoid colon. There is relative gaseous distention at the level of the splenic flexure. Immediately distal to this area there is a short segment of colon which demonstrates marked bowel wall thickening and luminal narrowing (image 26, series 2; image 37, series 802). There is mild asymmetric prominence of the lateral conal fascia on the left. ABDOMINAL WALL: No significant hernia is appreciated. LYMPH NODES: Normal. VASCULAR: Unremarkable. PELVIC VISCERA: There is relative hypoenhancement of the endometrial canal and lower uterine segment as well as the cervical region. This is a new finding compared to the remote prior examinations. There is no interval change in the overall size of uterus. The adnexal regions are unremarkable. There is no significant free fluid within the pelvis. OSSEOUS STRUCTURES: There are degenerative changes of the lower thoracic and lumbar spine. Vacuum disc phenomena is visualized at the L3-L4 level. IMPRESSION: 1. Short segment of abnormal descending colon just distal to the splenic flexure. Differential considerations would include ischemic (watershed zone), inflammatory and infectious colitis. There is a trace amount of fluid within the left paracolic gutter as well as prominence of lateral conal fascia favoring more of an acute inflammatory or infectious process. Underlying malignancy should also be considered. Correlation with colonoscopy is also suggested. 2. Somewhat unusual appearance of the lower uterus and cervix compared to previous examinations. Correlation with pelvic exam recommended. 3. Mild to moderate intrahepatic biliary dilatation in the setting of prior cholecystectomy. Correlation with liver function tests recommended. 4. Hepatic steatosis. 5. Previously drained right renal cyst now measuring up to 5.8 cm in diameter. 6. Mild prominence of the pancreatic duct of uncertain significance. DICTATED BY: DIO KEN MD DATE/TIME DICTATED:08/19/161958 TURBO ELECTRIC OPERATOR:ARTEM (JESUS MANUEL DINERO) Departure Departure Disposition: HOME OR SELF CARE Condition: Stable Clinical Impression Primary Impression: Abdominal pain Secondary Impressions: Adverse drug effect, Diarrhea Referrals: JOSE EMANUEL MD (PCP/Family) CARY VERGARA MD Additional Instructions: As discussed YOU MAY discontinue the Keflex as this may be a cause of your symptoms. Begin eating a well healthy balanced diet and begin drinking plenty of water for hydration. If symptoms worsen return to emergency room. If no better in 2 days follow-up with her established software requirements engineer Dr. VERGARA Departure Forms: Customer Survey General Discharge Information (JESUS MANUEL DINERO) PA/BOTTLE TESTER Co-Sign Statement Statement: ED Attending supervision documentation- [] I saw and evaluated the patient. I have also reviewed all the pertinent lab results and diagnostic results. I agree with the findings and the plan of care as documented in the PA's/BOTTLE TESTER's documentation. [X] I have reviewed the ED Record and agree with the PA's/BOTTLE TESTER's documentation. [] Additions or exceptions (if any) to the PAs/BOTTLE TESTER's note and plan are summarized below: [] (VIRGINIA GOMEZ,SHOLA Ji)
[2016-08-19] MEDS ORDERED: SYSTANE GEL10 GM OPH (18:29)
[2016-08-19] MEDS ORDERED: REFRESH P.M. O3.5 GM OPH (18:30)
[2016-08-19 19:00] LABS: ABSOLUTE BASOPHIL COUNT 0 /CUMM (0.0-0.2); ABSOLUTE EOSINOPHIL COUNT 0.1 /CUMM (0.0-0.7); ABSOLUTE GRANULOCYTE CT 4.6 /CUMM (1.4-6.5); ABSOLUTE LYMPH COUNT 1.8 /CUMM (1.2-3.4); ABSOLUTE MONOCYTE COUNT 0.5 /CUMM (0.10-0.60); BASOPHIL % 0.5 % (0.0-2.0); EOSINOPHIL % 1.2 % (0-5); GRANULOCYTE % 65.7 % (42.2-75.2); HEMATOCRIT 34.5 % (37-47); MEAN CORPUSCULAR HGB 30.5 PG (27.0-31.0); MEAN CORPUSCULAR HGB CONC 32.8 G/DL (33.0-37.0); MEAN PLATELET VOLUME 8.6 FL (7.4-10.4); PLATELET COUNT 230 /CUMM (130-400); RBC DISTRIBUTION WIDTH 15.1 % (11.5-14.5); RED BLOOD CELL CT 3.72 /CUMM (4.20-5.40); WHITE BLOOD CELL COUNT 6.9 /CUMM (4.8-10.8)
--- NOTE | 2016-08-19 20:14 | CT SCAN REPORT ---
EXAMINATION: CT ABDOMEN AND PELVIS WITH CONTRAST CLINICAL INFORMATION: Abdominal pain and diarrhea. History of right renal cyst aspiration. COMPARISON: CT abdomen and pelvis 06/14/2016, 08/07/2013, 11/02/2008 TECHNIQUE: Multidetector volumetric imaging was performed of the abdomen and pelvis before and after the IV administration of 94 mL of Optiray 320 intravenous contrast. Sagittal and coronal reformatted images were obtained on the technologist's workstation. DLP: 253 mGy-cm FINDINGS: LUNG BASES: There is bibasilar atelectasis LIVER, GALLBLADDER, AND BILIARY TREE: The liver is mildly low in attenuation. A heterogeneous area within segment 4A is most suggestive of fatty sparing. There is mild to moderate intrahepatic biliary dilatation. The common bile duct measures 0.7 cm at the distal aspect. The patient is status post cholecystectomy. PANCREAS: The pancreatic duct is mildly prominent measuring between 0.3 and 0.4 cm. The pancreas is otherwise unremarkable. SPLEEN: Unremarkable. ADRENAL GLANDS: Unremarkable. KIDNEYS AND URETERS: The kidneys enhance symmetrically and excrete contrast normally. There are numerous bilateral hypoattenuating lesions. The largest is located in the upper pole of the right kidney measuring up to 5.8 cm. This lesion is partially exophytic and was previously targeted for drainage. Hypoechoic lesion at the upper pole of the left kidney measures 2.2 cm is consistent with a cyst. There are bilateral subcentimeter hypodense structures of both kidneys which are too small to characterize but statistically likely represent cysts.. BLADDER: Unremarkable. GASTROINTESTINAL TRACT: There are no dilated loops of large or small bowel. Normal appendix is visualized in the right lower quadrant. There are scattered diverticula mostly involving the sigmoid colon. There is relative gaseous distention at the level of the splenic flexure. Immediately distal to this area there is a short segment of colon which demonstrates marked bowel wall thickening and luminal narrowing (image 26, series 2; image 37, series 802). There is mild asymmetric prominence of the lateral conal fascia on the left. ABDOMINAL WALL: No significant hernia is appreciated. LYMPH NODES: Normal. VASCULAR: Unremarkable. PELVIC VISCERA: There is relative hypoenhancement of the endometrial canal and lower uterine segment as well as the cervical region. This is a new finding compared to the remote prior examinations. There is no interval change in the overall size of uterus. The adnexal regions are unremarkable. There is no significant free fluid within the pelvis. OSSEOUS STRUCTURES: There are degenerative changes of the lower thoracic and lumbar spine. Vacuum disc phenomena is visualized at the L3-L4 level. IMPRESSION: 1. Short segment of abnormal descending colon just distal to the splenic flexure. Differential considerations would include ischemic (watershed zone), inflammatory and infectious colitis. There is a trace amount of fluid within the left paracolic gutter as well as prominence of lateral conal fascia favoring more of an acute inflammatory or infectious process. Underlying malignancy should also be considered. Correlation with colonoscopy is also suggested. 2. Somewhat unusual appearance of the lower uterus and cervix compared to previous examinations. Correlation with pelvic exam recommended. 3. Mild to moderate intrahepatic biliary dilatation in the setting of prior cholecystectomy. Correlation with liver function tests recommended. 4. Hepatic steatosis. 5. Previously drained right renal cyst now measuring up to 5.8 cm in diameter. 6. Mild prominence of the pancreatic duct of uncertain significance.
[2016-08-19 20:42] VITALS: BP 146/84
== END 2016-08-19 20:46 ==
LOC: ERH 15:55
PROVIDERS: Physician Assistant
DX: T36.95XA Adverse effect of unspecified systemic antibiotic, initial encounter (principal)
CPT/HCPCS: 74177; 81001; 87045; 96360; J7040